=== PATIENT | female | born 1985 | race Caucasian/White ===

== ENCOUNTER 2018-06-20 17:41 | Emergency (ER) | payer OTHER ==
--- OUTSIDE RECORDS SUMMARY | 2018-06-20 18:26 | XMS REPORT ---
:1985 External Reference #:[id number] Author Organization [facility] Address [address] [place] [address] Phone [phone] Care Team Providers Name Role Phone HCP given Primary Care Physician Unavailable Payers Type Date Identification Numbers Payment Provider Subscriber Commercial Policy Number: [id number] [facility] [employer] Number: [id number] [address] [address] PayID: [id number] [place] [address] Problems Date Description Provider Status Onset: 05/14/2017 Opioid dependence Melvin Yi M.D. Active Onset: 05/14/2017 Tobacco user Melvin Yi M.D. Active Onset: 05/14/2017 Low back pain Melvin Yi M.D. Active Family History Date Family Member(s) Problem(s) Comments Mother Anemia Onset: Children None (05/11/2016) Siblings 1 brother (A&W) Paternal Grandmother due to Breast () - in her Cancer late 50s Social History Type Date Description Comments Education Highest Level Completed College Marital Status Single Occupation 05/11/2016 [employer] works for [employer] ([employer]) Cigarette Use 05/14/2017 current cigarette smoker 1ppd at peak; as of 05/11/16 is cutting down, now ~1/2ppd or less, and is planning to quit. 05/14/17: pt again noted smoking 1/2ppd and in midst of quitting ETOH Use 05/11/2016 Rarely consumes alcohol Exercise Type/Frequency 05/11/2016 Exercises regularly Age 1st [place] 16 Years Old # Partners in a Lifetime 05/11/2016 Partners 5-10 STD's 05/11/2016 No STD History Allergies, Adverse Reactions, Alerts Date Description Reaction Status Severity Comments 05/11/2016 Sulfa active swelling, hives Medications Medication Date Status Form Strength Qnty SIG Indications Ordering Provider Apri 03/24/ Active Tablets 0.15-30mg 84tab 1 by mouth Z30.09 Silcoff, 2017 -mcg s every day; for Melvin contraception M.DAnjana Buprenorphine 04/27/ Active Tablets 8-2mg 45tab 1 in the M54.5 Silcoff, HCL-Naloxone 2015 Sub s morning, 10/22 SOL Charles in afternoon; Sherley for chronic pain and opioid dependence; prescriber# [id number]; rx due 06/01/18 G89.4 F11.20 Ibuprofen 04/27/2016 Active Tablets 200mg as directed as Unknown needed Omeprazole 11/13/2017 - Hx Capsules DR 40mg 30c 1 by mouth every K30 Silcoff, 01/27/2018 aps day Sherley Charles Apri 05/14/2017 - Hx Tablets 0.15-30mg 84t 1 by mouth every Z30 Silcoff , 08/02/2017 -mcg abs day; for .09 Melvin contraception Peter.Kimberly. Famotidine 04/16/2017 - Hx Tablets 20mg 30t take one tablet R14 Silcoff , 05/14/2017 abs by mouth 10 .2 Melvin, minutes before Sherley supper; stop after 1 month if doing well R10.30 K30 Omeprazole 03/05/2017 - Hx Capsules DR 20mg 30caps 1 by mouth R14.2 Silcoff, 04/16/2017 every day Sherley Charles for acid reflux R10.30 K30 Omeprazole 12/21/2016 - Hx Capsules DR 40mg 30caps 1 by mouth every R14.2 Silcoff, 03/05/2017 day for acid Melvin reflux/belly M.D. pain R10.30 K30 Omeprazole 11/21/2016 - Hx Capsules DR 40mg 30caps 1 by mouth R14.2 Silcoff, 12/21/2016 every day; Sherley Charles stop after 2 wks if not effective; for morning belly symptoms R10.30 K30 Amoxicillin/Clavulanate 07/30/2016 Hx Tablets 875-125mg 20tabs 1 by mouth J01.90 Unknown Potassium - twice a 08/09/2016 day for sinus infection Methylprednisolone 07/30/2016 Hx Tablets 4mg 6 tabs on J01.90 Unknown - day 1; 08/05/2016 then 5 tabs day2; then 4 tabs day3; then 3 tabs day4; then 2 tabs day 5; then 1 tab day 6 Cephalexin 07/04/2016 Hx Capsules 500mg 21caps Take One Unknown - Capsule By 07/11/2016 Mouth Three Times A Day Until Gone Vitamin B12 05/10/2016 Hx Tablets 1000mcg take 1 D64.9 Unknown - ER tablet 06/08/2016 daily Vitamin D 04/27/2016 Hx Tablets 1000Unit 1 by mouth D64.9 Unknown - every day 12/20/2016 Multivitamin Adult Hx Tablets 1 by mouth Unknown - every day 09/25/2016 Vitamin C Hx Chewtabs 500mg 1 daily Unknown - 09/25/2016 Immunizations CPT Code Status Date Vaccine Lot # [id number] Given 06/11/2017 Influenza Virus Vaccine, Quadrivalent, Split, [id number] Preservative Free [id number] Given 07/07/2016 Influenza Virus Vaccine, Quadrivalent, Split, [id number] Preservative Free Vital Signs Date Vital Result Comment 05/28/2018 BP Systolic 106 mmHg BP Diastolic 70 mmHg Weight 159.00 lb 04/29/2018 BP Systolic 119 mmHg BP Diastolic 60 mmHg Weight 158.00 lb 03/25/2018 BP Systolic 106 mmHg BP Diastolic 70 mmHg Height 64.5 inches 5'4.50" Weight 162.00 lb BMI (Body Mass Index) 27.4 kg/m2 02/25/2018 BP Systolic 108 mmHg BP Diastolic 60 mmHg Weight 162.00 lb 01/28/2018 BP Systolic 110 mmHg BP Diastolic 68 mmHg Weight 164.00 lb 12/24/2017 BP Systolic 124 mmHg BP Diastolic 82 mmHg 11/13/2017 BP Systolic 110 mmHg BP Diastolic 70 mmHg Weight 164.00 lb 10/08/2017 BP Systolic 108 mmHg BP Diastolic 70 mmHg Weight 164.00 lb 09/03/2017 BP Systolic 110 mmHg BP Diastolic 66 mmHg Height 64 inches 5'4" Weight 162.00 lb BMI (Body Mass Index) 27.8 kg/m2 08/06/2017 BP Systolic 126 mmHg BP Diastolic 70 mmHg 07/09/2017 BP Systolic 102 mmHg BP Diastolic 58 mmHg Weight 157.00 lb 06/11/2017 BP Systolic 118 mmHg BP Diastolic 64 mmHg Weight 158.00 lb w/shoes 05/14/2017 BP Systolic 108 mmHg BP Diastolic 70 mmHg Weight 160.00 lb 04/16/2017 BP Systolic 124 mmHg BP Diastolic 70 mmHg Weight 163.00 lb 03/05/2017 BP Systolic 102 mmHg BP Diastolic 62 mmHg Weight 165.00 lb 01/22/2017 BP Systolic 100 mmHg BP Diastolic 60 mmHg Height 64 inches 5'4" Weight 158.00 lb BMI (Body Mass Index) 27.1 kg/m2 12/21/2016 BP Systolic 118 mmHg BP Diastolic 72 mmHg Weight 157.00 lb with shoes 11/21/2016 BP Systolic 112 mmHg BP Diastolic 58 mmHg Weight 144.00 lb 10/24/2016 BP Systolic 122 mmHg BP Diastolic 64 mmHg 09/26/2016 BP Systolic 114 mmHg BP Diastolic 74 mmHg Weight 165.00 lb w/shoes 08/29/2016 BP Systolic 116 mmHg BP Diastolic 70 mmHg Weight 170.00 lb 08/03/2016 BP Systolic 118 mmHg BP Diastolic 78 mmHg Weight 164.00 lb 07/07/2016 BP Systolic 108 mmHg BP Diastolic 72 mmHg Weight 166.00 lb w/shoes 06/08/2016 BP Systolic 106 mmHg BP Diastolic 70 mmHg Weight 169.00 lb w/shoes 05/11/2016 BP Systolic 126 mmHg BP Diastolic 80 mmHg Heart Rate 80 /min reg Respiratory Rate 12 /min not laboured Height 64 inches 5'4" Weight 170.00 lb BMI (Body Mass Index) 29.2 kg/m2 Results Test Date Test Result H/L Range Note Comprehensive Metabolic Panel 03/16/2018 Glucose 108 mg/dL High 74-106 1 BUN 9 mg/dL 7-18 1 Creatinine 0.7 mg/dL 0.6-1.3 1 Glom Filtration Rate, Estimate >60 mL/min >60 1 If >60 mL/min >60 1, 2 BUN/Creat 12.8 ratio 1 Sodium 141 mmol/L 136-145 1 Potassium 3.5 mmol/L 3.5-5.1 1 Chloride 108 mmol/L High 98-107 1 Carbon Dioxide 26 mmol/L 21-32 1 Anion Gap 7 mEq/L Low 8-16 1 Calcium 9.4 mg/dL 8.5-10.1 1 Total Protein 7.9 g/dL 6.4-8.2 1 Albumin 4.2 g/dL 3.4-5.0 1 Globulin 3.7 g/dL 1.9-4.3 1 Alb/Glob 1.1 ratio 1 Bilirubin,Total 0.9 mg/dL 0.2-1.0 1 Sgot/Ast 18 U/L 15-37 1 SGPT/Alt 19 U/L 12-78 1 Alkaline Phosphatase 58 U/L 45-117 1 Type And Screen 03/16/2018 Patient Blood Type A POS 1 Antibody Screen Negative Negative 1 Laboratory test finding 03/16/2018 HCG, Quant 5031.0 mIU/mL 1, 3 Urine Drug Screen Inhouse 07/09/2017 Ua Cocaine - Ua Opiates - Ua Amphetamines - Urine Methanphetamines - Urine Benzodiazepines QN [place] - Urine Oxycodone QL - CBC 10/02/2016 White Blood Count 5.8 K/uL 3.1-10.7 4 Red Blood Count 4.22 M/uL 3.90-5.40 4 Hemoglobin 12.2 gm/dL 11.6-15.8 4 Hematocrit 36.3 % 36.0-46.1 4 Mean Cell Volume 86.0 fl 80.9-99.0 4 Mean Corpuscular HGB 28.9 pg 25.9-32.7 4 Mean Corpuscular HGB Conc 33.6 g/dL 30.8-34.3 4 Platelet Count 282 K/uL 155-360 4 Red Cell Distri Width %CV 13.1 % 11.7-14.4 4 Mean Platelet Volume 10.3 fL 8.9-12.4 4 Basic Metabolic Panel 10/02/2016 Glucose 113 mg/dL High 74-106 4 BUN 2 mg/dL Low 7-18 4 Creatinine 0.6 mg/dL 0.6-1.3 4 Glom Filtration Rate, Estimate >60 mL/min >60 4 If >60 mL/min >60 4, 5 BUN/Creat 3.3 ratio 4 Sodium 143 mmol/L 136-145 4 Potassium 3.1 mmol/L Low 3.5-5.1 4 Chloride 107 mmol/L 98-107 4 Carbon Dioxide 28 mmol/L 21-32 4 Anion Gap 8 mEq/L 8-16 4 Calcium 8.6 mg/dL 8.5-10.1 4 CBC 10/01/2016 White Blood Count 6.1 K/uL 3.1-10.7 6 Red Blood Count 4.31 M/uL 3.90-5.40 6 Hemoglobin 12.5 gm/dL 11.6-15.8 6 Hematocrit 37.1 % 36.0-46.1 6 Mean Cell Volume 86.1 fl 80.9-99.0 6 Mean Corpuscular HGB 29.0 pg 25.9-32.7 6 Mean Corpuscular HGB Conc 33.7 g/dL 30.8-34.3 6 Platelet Count 288 K/uL 155-360 6 Red Cell Distri Width %CV 13.1 % 11.7-14.4 6 Mean Platelet Volume 10.0 fL 8.9-12.4 6 Basic Metabolic Panel 10/01/2016 Glucose 110 mg/dL High 74-106 6 BUN 4 mg/dL Low 7-18 6 Creatinine 0.6 mg/dL 0.6-1.3 6 Glom Filtration Rate, Estimate >60 mL/min >60 6 If >60 mL/min >60 6, 7 BUN/Creat 6.6 ratio 6 Sodium 143 mmol/L 136-145 6 Potassium 3.6 mmol/L 3.5-5.1 6 Chloride 109 mmol/L High 98-107 6 Carbon Dioxide 25 mmol/L 21-32 6 Anion Gap 9 mEq/L 8-16 6 Calcium 8.7 mg/dL 8.5-10.1 6 Blood Culture 09/30/2016 Blood Culture Aerobic NO GROWTH: FINAL <SEE NOTE> 8, 9 Blood Culture Anaerobic NO GROWTH: FINAL <SEE NOTE> 8, 10 Blood Culture 09/30/2016 Blood Culture Aerobic NO GROWTH: FINAL <SEE NOTE> 8, 11 Blood Culture Anaerobic NO GROWTH: FINAL <SEE NOTE> 8, 12 CBS W/Automated Diff 09/30/2016 White Blood Count 9.0 K/uL 3.1-10.7 13 Red Blood Count 5.04 M/uL 3.90-5.40 13 Hemoglobin 14.5 gm/dL 11.6-15.8 13 Hematocrit 42.9 % 36.0-46.1 13 Mean Cell Volume 85.1 fl 80.9-99.0 13 Mean Corpuscular HGB 28.8 pg 25.9-32.7 13 Mean Corpuscular HGB Conc 33.8 g/dL 30.8-34.3 13 Platelet Count 319 K/uL 155-360 13 Red Cell Distri Width SD 39.9 fl 3-47 13 Red Cell Distri Width %CV 13.1 % 11.7-14.4 13 Mean Platelet Volume 9.9 fL 8.9-12.4 13 Neut% 70.3 % 40.4-72.8 13 Lymph % 22.7 % 17.0-46.1 13 [place] % 5.1 % 4.3-13.2 13 Eo% 1.3 % 0.0-6.6 13 Bas% 0.6 % 0.0-1.1 13 Neut# 6.33 K/uL 1.8-7.0 13 Lymph # 2.04 K/uL 1.8-7.0 13 [place] # 0.46 K/uL 0.3-0.9 13 Eos # 0.12 K/uL 0.0-0.5 13 Baso # 0.05 K/uL 0.0-0.1 13 Urinalysis With Microscopic 09/30/2016 Urine Color YELLOW Yellow 13 Urine Clarity CLEAR Clear 13 Urine Glucose - Dipstick NEGATIVE mg/dL Negative 13 Urine Bilirubin - Dipstick SMALL Negative 13 Urine Ketone >=80 mg/dL High Negative 13 Urine Specific [place] >=1.030 1.010-1.030 13 Urine Blood SMALL Negative 13 Urine PH 6.0 Low 6.5-7.5 13 Urine Protein - Dipstick NEGATIVE mg/dL Negative 13 Urine Urobilinogen - Dipstick 0.2 E.U./dL 0.2-1.0 13 Urine Nitrite - Dipstick NEGATIVE Negative 13 Urine Leuk Esterase NEGATIVE Negative 13 Urine RBC 0-2 rbc/hpf 0-2 13 Urine WBC 2-5 wbc/hpf 0-7 13 Urine Epithelial Cells MANY /lpf None Seen 13, 14 Urine Bacteria MODERATE None Seen 13 Source: URINE, CLEAN CAT <SEE NOTE> 13, 15 Comprehensive Metabolic Panel 09/30/2016 Glucose 78 mg/dL 74-106 13 BUN 10 mg/dL 7-18 13 Creatinine 0.7 mg/dL 0.6-1.3 13 Glom Filtration Rate, Estimate >60 mL/min >60 13 If >60 mL/min >60 13, 16 BUN/Creat 14.2 ratio 13 Sodium 140 mmol/L 136-145 13 Potassium 3.5 mmol/L 3.5-5.1 13 Chloride 105 mmol/L 98-107 13 Carbon Dioxide 23 mmol/L 21-32 13 Anion Gap 12 mEq/L 8-16 13 Calcium 9.0 mg/dL 8.5-10.1 13 Total Protein 7.5 g/dL 6.4-8.2 13 Albumin 4.0 g/dL 3.4-5.0 13 Globulin 3.5 g/dL 1.9-4.3 13 Alb/Glob 1.1 ratio 13 Bilirubin,Total 0.8 mg/dL 0.2-1.0 13 Sgot/Ast 21 U/L 15-37 13 SGPT/Alt 24 U/L 12-78 13 Alkaline Phosphatase 76 U/L 45-117 13 Drugs Of Abuse-Urine Screen 7 09/30/2016 Amphetamines (Urine) Negative 13 Barbiturates (Urine) POSITIVE 13 Benzodiazepines (Urine) Negative 13 Cannabinoids (Urine) Negative 13 Cocaine Metabolite (Urine) Negative 13 Methadone (Urine) Negative 13 Opiates (Urine) Negative 13 Urine Cutoffs * 13, 17 Laboratory test 09/30/2016 Carbamazepine 1.8 ug/mL Low 4.0-12.0 13 finding Urine Culture 09/30/2016 Urine Culture NO GROWTH: 13, 18 FINAL <SEE NOTE> Laboratory test 09/30/2016 C. Difficile Toxin NEGATIVE FOR C. 19, 20 finding A/B <SEE NOTE> Laboratory test 09/29/2016 Lipase 106 U/L 73-393 21 finding HCG,Serum (Qualitative) NEGATIVE (Negative) 21, 22 CBS W/Automated Diff 09/29/2016 White Blood Count 8.1 K/uL 3.1-10.7 21 Red Blood Count 4.68 M/uL 3.90-5.40 21 Hemoglobin 13.4 gm/dL 11.6-15.8 21 Hematocrit 40.3 % 36.0-46.1 21 Mean Cell Volume 86.1 fl 80.9-99.0 21 Mean Corpuscular HGB 28.6 pg 25.9-32.7 21 Mean Corpuscular HGB Conc 33.3 g/dL 30.8-34.3 21 Platelet Count 284 K/uL 155-360 21 Red Cell Distri Width SD 40.2 fl 3-47 21 Red Cell Distri Width %CV 13.0 % 11.7-14.4 21 Mean Platelet Volume 10.2 fL 8.9-12.4 21 Neut% 67.8 % 40.4-72.8 21 Lymph % 24.5 % 17.0-46.1 21 [place] % 6.2 % 4.3-13.2 21 Eo% 1.0 % 0.0-6.6 21 Bas% 0.5 % 0.0-1.1 21 Neut# 5.47 K/uL 1.8-7.0 21 Lymph # 1.98 K/uL 1.8-7.0 21 [place] # 0.50 K/uL 0.3-0.9 21 Eos # 0.08 K/uL 0.0-0.5 21 Baso # 0.04 K/uL 0.0-0.1 21 Comprehensive Metabolic Panel 09/29/2016 Glucose 75 mg/dL 74-106 21 BUN 9 mg/dL 7-18 21 Creatinine 0.6 mg/dL 0.6-1.3 21 Glom Filtration Rate, Estimate >60 mL/min >60 21 If >60 mL/min >60 21, 23 BUN/Creat 15.0 ratio 21 Sodium 143 mmol/L 136-145 21 Potassium 3.4 mmol/L Low 3.5-5.1 21 Chloride 107 mmol/L 98-107 21 Carbon Dioxide 23 mmol/L 21-32 21 Anion Gap 13 mEq/L 8-16 21 Calcium 8.7 mg/dL 8.5-10.1 21 Total Protein 7.2 g/dL 6.4-8.2 21 Albumin 3.8 g/dL 3.4-5.0 21 Globulin 3.4 g/dL 1.9-4.3 21 Alb/Glob 1.1 ratio 21 Bilirubin,Total 0.8 mg/dL 0.2-1.0 21 Sgot/Ast 17 U/L 15-37 21 SGPT/Alt 23 U/L 12-78 21 Alkaline Phosphatase 73 U/L 45-117 21 CBS W/Automated Diff 09/28/2016 White Blood Count 6.1 K/uL 3.1-10.7 24 Red Blood Count 4.80 M/uL 3.90-5.40 24 Hemoglobin 13.6 gm/dL 11.6-15.8 24 Hematocrit 41.1 % 36.0-46.1 24 Mean Cell Volume 85.6 fl 80.9-99.0 24 Mean Corpuscular HGB 28.3 pg 25.9-32.7 24 Mean Corpuscular HGB Conc 33.1 g/dL 30.8-34.3 24 Platelet Count 304 K/uL 155-360 24 Red Cell Distri Width SD 40.3 fl 3-47 24 Red Cell Distri Width %CV 13.1 % 11.7-14.4 24 Mean Platelet Volume 9.6 fL 8.9-12.4 24 Neut% 57.2 % 40.4-72.8 24 Lymph % 34.1 % 17.0-46.1 24 [place] % 6.4 % 4.3-13.2 24 Eo% 1.3 % 0.0-6.6 24 Bas% 1.0 % 0.0-1.1 24 Neut# 3.47 K/uL 1.8-7.0 24 Lymph # 2.07 K/uL 1.8-7.0 24 [place] # 0.39 K/uL 0.3-0.9 24 Eos # 0.08 K/uL 0.0-0.5 24 Baso # 0.06 K/uL 0.0-0.1 24 Comprehensive Metabolic Panel 09/28/2016 Glucose 97 mg/dL 74-106 24 BUN 13 mg/dL 7-18 24 Creatinine 0.8 mg/dL 0.6-1.3 24 Glom Filtration Rate, Estimate >60 mL/min >60 24 If >60 mL/min >60 24, 25 BUN/Creat 16.2 ratio 24 Sodium 142 mmol/L 136-145 24 Potassium 3.3 mmol/L Low 3.5-5.1 24 Chloride 106 mmol/L 98-107 24 Carbon Dioxide 25 mmol/L 21-32 24 Anion Gap 11 mEq/L 8-16 24 Calcium 9.1 mg/dL 8.5-10.1 24 Total Protein 8.0 g/dL 6.4-8.2 24 Albumin 4.2 g/dL 3.4-5.0 24 Globulin 3.8 g/dL 1.9-4.3 24 Alb/Glob 1.1 ratio 24 Bilirubin,Total 1.0 mg/dL 0.2-1.0 24 Sgot/Ast 19 U/L 15-37 24 SGPT/Alt 24 U/L 12-78 24 Alkaline Phosphatase 81 U/L 45-117 24 Laboratory test finding 09/28/2016 Lipase 144 U/L 73-393 24 HCG,Serum (Qualitative) NEGATIVE (Negative) 24 Urine Drug Screen Inhouse 08/03/2016 Ua Cocaine - Ua Opiates - Ua Amphetamines - Urine Methanphetamines - Urine Benzodiazepines QN Olalla - Urine Oxycodone QL - Urine Drug Screen Inhouse 06/08/2016 Ua Cocaine - Ua Opiates - Ua Amphetamines - Urine Methanphetamines - Urine Benzodiazepines QN Olalla - Urine Oxycodone QL - Iron-Tibc-%Sat 05/30/2016 Serum Iron 84 g/dL 50-170 Total Iron Binding Capacity 360 g/dL 250-450 Transferrin %Saturation 23 % 12-57 Laboratory test finding 05/30/2016 Vitamin B12 446 pg/mL 193-986 26 Folic Acid 6.3 ng/mL 3.1-17.5 27 Ferritin 34 ng/mL 8-252 CBC W/Automated Diff 05/30/2016 White Blood Count 6.8 K/uL 3.1-10.7 Red Blood Count 4.63 M/uL 3.90-5.40 Hemoglobin 13.5 gm/dL 11.6-15.8 Hematocrit 40.4 % 36.0-46.1 Mean Cell Volume 87.3 fl 80.9-99.0 Mean Corpuscular HGB 29.2 pg 25.9-32.7 Mean Corpuscular HGB Conc 33.4 g/dL 30.8-34.3 Platelet Count 324 K/uL 155-360 Red Cell Distri Width SD 40.9 fl 3-47 Red Cell Distri Width %CV 13.2 % 11.7-14.4 Mean Platelet Volume 10.4 fL 8.9-12.4 Neut% 50.5 % 40.4-72.8 Lymph % 39.3 % 17.0-46.1 [place] % 5.4 % 4.3-13.2 Eo% 4.4 % 0.0-6.6 Bas% 0.4 % 0.0-1.1 Neut# 3.42 K/uL 1.8-7.0 Lymph # 2.67 K/uL 1.8-7.0 [place] # 0.37 K/uL 0.3-0.9 Eos # 0.30 K/uL 0.0-0.5 Baso # 0.03 K/uL 0.0-0.1 Urine Drug Screen Inhouse 05/11/2016 Ua Cocaine - Ua Opiates - Ua Amphetamines - Urine Methanphetamines - Urine Benzodiazepines QN [place] - Urine Oxycodone QL - 1 SEVERE LOWER ABD PAIN, BLEEDING 2 Note: Persistent reduction for 3 months or more in an eGFR <60 mL/min/1.73 m2 defines CKD. Patients with eGFR values >/=60 mL/min/1.73 m2 may also have CKD if evidence of persistent proteinuria is present. The original MDRD equation for estimated GFR is not valid for patients less than 18 years of age. Additional information may be found at [email or web address]. 3 Approximate Gestational Age and Total BHCG Range: 0.2 - 1 Week........................5-50 mIU/mL 1 - 2 Weeks.....................50-500 mIU/mL 2 - 3 Weeks..................100-5,000 mIU/mL 3 - 4 Weeks.................500-10,000 mIU/mL 4 - 5 Weeks...............1,000-50,000 mIU/mL 5 - 6 Weeks.............10,000-100,000 mIU/mL 6 - 8 Weeks.............15,000-200,000 mIU/mL 2 - 3 Months............10,000-100,000 mIU/mL 4 ABD PAIN, FAILED OUTPT THERAPY 5 Note: Persistent reduction for 3 months or more in an eGFR <60 mL/min/1.73 m2 defines CKD. Patients with eGFR values >/=60 mL/min/1.73 m2 may also have CKD if evidence of persistent proteinuria is present. The original MDRD equation for estimated GFR is not valid for patients less than 18 years of age. Additional information may be found at [email or web address]. 6 ABD PAIN FAILED OUTPT THERAPY 7 Note: Persistent reduction for 3 months or more in an eGFR <60 mL/min/1.73 m2 defines CKD. Patients with eGFR values >/=60 mL/min/1.73 m2 may also have CKD if evidence of persistent proteinuria is present. The original MDRD equation for estimated GFR is not valid for patients less than 18 years of age. Additional information may be found at [email or web address]. 8 ABD PAIN, FAILED OUTPT THERAPY 9 NO GROWTH: FINAL REPORT 10 NO GROWTH: FINAL REPORT 11 NO GROWTH: FINAL REPORT 12 NO GROWTH: FINAL REPORT 13 ABD PAIN FAILED OUTPT THERAPY 14 POSSIBLE UROGENITAL CONTAMINATION. 15 URINE, CLEAN CATCH 16 Note: Persistent reduction for 3 months or more in an eGFR <60 mL/min/1.73 m2 defines CKD. Patients with eGFR values >/=60 mL/min/1.73 m2 may also have CKD if evidence of persistent proteinuria is present. The original MDRD equation for estimated GFR is not valid for patients less than 18 years of age. Additional information may be found at [email or web address]. 17 URINE SPECIMENS ARE SCREENED AT THE LISTED CUTOFFS DRUG CLASS INITIAL TEST LEVEL Amphetamines 1000 ng/mL Barbiturates 200 ng/mL Benzodiazepines 200 ng/mL Cannabinoids 50 ng/mL Cocaine Metabolite 300 ng/mL Methadone 300 ng/mL Opiates 300 ng/mL Any PRESUMPTIVE POSITIVE findings are UNCONFIRMED. Confirmatory testing is suggested if findings are unexpected. Please contact laboratory if confirmatory testing is desired. SPECIMENS ARE HELD FOR 72 HOURS. 18 NO GROWTH: FINAL REPORT 19 ABD PAIN, FAILED OUTPT THERAPY 20 NEGATIVE FOR C. DIFFICILE TOXIN A/B. CORRELATE RESULTS WITH CLINICAL CONDITION. 21 SEVERE CENTRAL ABD PAIN,SEEN EARLIER NOT BETTER 22 SERUM SPECIMEN 23 Note: Persistent reduction for 3 months or more in an eGFR <60 mL/min/1.73 m2 defines CKD. Patients with eGFR values >/=60 mL/min/1.73 m2 may also have CKD if evidence of persistent proteinuria is present. The original MDRD equation for estimated GFR is not valid for patients less than 18 years of age. Additional information may be found at [email or web address]. 24 STOMACH PAIN 25 Note: Persistent reduction for 3 months or more in an eGFR <60 mL/min/1.73 m2 defines CKD. Patients with eGFR values >/=60 mL/min/1.73 m2 may also have CKD if evidence of persistent proteinuria is present. The original MDRD equation for estimated GFR is not valid for patients less than 18 years of age. Additional information may be found at [email or web address]. 26 QUERY: Is Patient Fasting? Y 27 QUERY: Is Patient Fasting? Y Procedures Description No Information Encounters Type Date Location Provider CPT E/M Dx Office Visit 05/28/2018 11:45a Main Office Melvin Yi M.D. 12165 F11.20 G89.4 Office Visit 04/29/2018 9:45a Main Office Melvin Yi M.D. 14819 F11.20 G89.4 M54.5 Office Visit 03/25/2018 11:15a Main Office Melvin Yi M.D. 03241 F11.20 G89.4 M54.5 Z30.09 O02.1 Office Visit 02/25/2018 11:15a Main Office Melvin Yi M.D. 35332 F11.20 G89.4 M54.5 Office Visit 01/28/2018 11:15a Main Office Melvin Yi M.D. 01624 F11.20 G89.4 M54.5 K30 Office Visit 12/24/2017 2:30p Main Office Melvin Yi M.D. 40889 F11.20 G89.4 M54.5 K30 Office Visit 11/13/2017 11:45a Main Office Melvin Yi M.D. 14489 F11.20 G89.4 M54.5 K30 Office Visit 10/08/2017 9:30a Main Office Melvin Yi M.D. 78718 F11.20 G89.4 Office Visit 09/03/2017 4:00p Main Office Melvin Yi M.D. 37383 F11.20 M54.5 G89.4 Office Visit 08/06/2017 9:30a Main Office Melvin Yi M.D. 74408 F11.20 M54.5 G89.4 Office Visit 07/09/2017 2:45p Main Office Melvin Yi M.D. 27371 F11.20 M54.5 G89.4 Office Visit 06/11/2017 11:15a Main Office Melvin Yi M.D. 18641 F11.20 M54.5 G89.4 K30 F17.210 Z23 Z41.8 Office Visit 05/14/2017 9:30a Main Office Melvin Yi M.D. 25870 F11.20 M54.5 G89.4 K30 Z30.09 F17.210 Office Visit 04/16/2017 9:45a Main Office Melvin Yi M.D. 15735 F11.20 M54.5 G89.4 K30 Office Visit 03/05/2017 9:45a Main Office Melvin Yi M.D. 92815 F11.20 M54.5 K30 Office Visit 01/22/2017 10:15a Main Office Melvin Yi M.D. 54860 F11.20 M54.5 G89.4 R10.30 K30 Office Visit 12/21/2016 2:00p Main Office Melvin Yi M.D. 82805 F11.20 M54.5 G89.4 R10.30 K30 Office Visit 11/21/2016 11:30a Main Office Melvin Yi M.D. 86244 F11.20 M54.5 G89.4 R10.30 R14.3 R14.2 Office Visit 10/24/2016 1:15p Main Office Melvin Yi M.D. 46007 F11.20 M54.5 G89.4 G50.1 R19.7 Office Visit 09/26/2016 9:45a Main Office Melvin Yi M.D. 54818 F11.20 M54.5 G89.4 H92.01 Office Visit 08/29/2016 11:15a Main Office Melvin Yi M.D. 41253 F11.20 M54.5 G89.4 H92.01 Office Visit 08/03/2016 11:15a Main Office Melvin Yi M.D. 34299 F11.20 M54.5 G89.4 J01.90 Office Visit 07/07/2016 9:45a Main Office Melvin Yi M.D. 64475 F11.20 M54.5 G89.4 K08.9 Z23 Z41.8 Office Visit 06/08/2016 10:45a Main Office Melvin Yi M.D. 27391 F11.20 Office Visit 05/11/2016 2:00p Main Office Melvin Yi M.D. 36305 F11.20 M54.5 G89.4 D64.9 F17.210 Plan of Care Future Appointment(s):06/25/2018 11:30 am - Melvin Yi M.D. at [facility]/28/2018 - Mlevin Yi M.D.F11.20 Opioid dependence, uncomplicatedFollow up:RTO 1 diiadA43.4 Chronic pain syndrome
[2018-06-20 18:30] VITALS: BP 132/78
--- NOTE | 2018-06-20 18:43 | ED ---
Throat Pain/Nasal Congestion - HPI Summary HPI Summary: 33 yr old female with the complaint of sinus pressure,post nasal drip, right ear pain. Onset of symptoms couple days ago. No fever or chills. No cough. She has prior sinus issues in the past. - History of Current Complaint Chief Complaint: UCGeneralIllness Time Seen by Provider: 06/20/18 18:35 - Allergies/Home Medications Allergies/Adverse Reactions: Allergies Allergy/AdvReac Type Severity Reaction Status Date / Time MS Sulfa Antibiotics Allergy Unknown See Comment Verified 08/08/16 20:13 [Sulfa Antibiotics] Home Medications: Home Medications Desogestrel-Ethinyl Estradiol [Apreber 28 Day Tablet] 1 each PO DAILY 06/20/18 [ History Confirmed 06/20/18] Folic Acid TAB* [Folvite TAB*] 1 mg PO DAILY 06/20/18 [History Confirmed ] PMH/Surg Hx/FS Hx/Imm Hx Endocrine/Hematology History: Denies: Hx Diabetes, Hx Thyroid Disease Cardiovascular History: Denies: Hx Hypertension Respiratory History: Denies: Hx Asthma, Hx Chronic Obstructive Pulmonary Disease (COPD) GI History: Denies: Hx Ulcer - Surgical History Surgery Procedure, Year, and Place: tonsillectomy Infectious Disease History: No Infectious Disease History: Denies: Hx Clostridium Difficile, Hx Hepatitis, Hx Human Immunodeficiency Virus (HIV), Hx of Known/Suspected MRSA, Hx Shingles, Hx Tuberculosis, Hx Known/ Suspected VRE, Hx Known/Suspected VRSA, History Other Infectious Disease, Traveled Outside the [place] in Last 30 Days - Family History Known Family History: Negative: Cardiac Disease, Hypertension, Diabetes - Social History Alcohol Use: None Substance Use Type: Reports: None Smoking Status (MU): Heavy Every Day Tobacco Smoker Type: eCigdemetri Amount Used/How Often: 1/2 PPD Length of Time of Smoking/Using Tobacco: started age 20 Have You Smoked in the Last Year: Yes Review of Systems Constitutional: Negative Positive: Ear Ache, Other - sinus pressure Negative: Cough All Other Systems Reviewed And Are Negative: Yes Physical Exam Triage Information Reviewed: Yes Vital Signs On Initial Exam: Initial Vitals Temp Pulse Resp BP Pulse Ox 98.1 F 83 16 132/78 99 06/20/18 18:26 06/20/18 18:26 06/20/18 18:26 06/20/18 18:26 06/20/18 18:26 Vital Signs Reviewed: Yes Appearance: Positive: Well-Appearing, No Pain Distress Skin: Positive: Warm, Skin Color Reflects Adequate Perfusion Head/Face: Positive: Normal Head/Face Inspection Eyes: Positive: EOMI ENT: Positive: Normal ENT inspection, Pharynx normal, Nasal congestion, TMs normal, Sinus tenderness Neck: Positive: Supple, Nontender Respiratory/Lung Sounds: Positive: Clear to Auscultation, Breath Sounds Present Cardiovascular: Positive: RRR. Negative: Murmur Abdomen Description: Positive: Nontender Musculoskeletal: Positive: Strength/ROM Intact Neurological: Positive: Sensory/Motor Intact, Alert, Oriented to Person Place, Time, CN Intact II-III Psychiatric: Positive: Normal - [place] Coma Scale Best Eye Response: 4 - Spontaneous Best Motor Response: 6 - Obeys Commands Best Verbal Response: 5 - Oriented Coma Scale Total: 15 Diagnostics - Vital Signs Vital Signs Temp Pulse Resp BP Pulse Ox 06/20/18 18:26 98.1 F 83 16 132/78 99 - Laboratory Lab Statement: Any lab studies that have been ordered have been reviewed, and results considered in the medical decision making process. EENT Course/Dx - Course Course Of Treatment: 33 yr old female with sinusitis. Rx cefdinir - Diagnoses Provider Diagnoses: Sinusitis Discharge - Sign-Out/Discharge Documenting (check all that apply): Patient Departure All imaging exams completed and their final reports reviewed: No Studies - Discharge Plan Condition: Good Disposition: HOME Prescriptions: Cefdinir [Cefdinir 300 MG CAP] 300 mg PO BID #20 capsule Patient Education Materials: Sinusitis (ED) Referrals: Melvin Yi MD [Primary Care Provider] - 4 Days - Billing Disposition and Condition Condition: GOOD Disposition: Home
== END 2018-06-20 18:43 | disposition home or self-care (01) ==
LOC: UCCORT 17:41
DX: J32.9 Chronic sinusitis, unspecified (principal); F17.210 Nicotine dependence, cigarettes, uncomplicated; Z88.2 Allergy status to sulfonamides
CPT/HCPCS: 99212; G0463

== ENCOUNTER 2018-10-18 12:08 | Emergency (ER) | payer OTHER ==
--- OUTSIDE RECORDS SUMMARY | 2018-10-18 14:02 | XMS REPORT | Continuity of Care Document ---
:1985 External Reference #:[id number] Author Name Melvin Yi M.D. Address [address] [facility] [address] [place] [address] Care Team Providers Name Role Phone HCP given Primary Care Physician Unavailable Payers Type Date Identification Numbers Payment Provider Subscriber Policy Number: [id number] [facility] [employer] Number: [id number] [address] [address] PayID: [id number] [place] [address] Advance Directives Description No Information Available Problems Date Description Provider Status Onset: 05/14/2017 [...] 50s Social History Type Date Description Comments Sex Unknown Education Highest Level Completed College Marital Status Single Occupation 05/11/2016 [employer] 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 05/14/17: pt again noted smoking 1/2ppd and in midst of quitting Smoking Status Reviewed: current cigarette smoker 1ppd at peak; as of 05/14/17 05/11/16 is cutting down, now ~1/2ppd or less, and is planning to quit. 05/14/17: pt again noted smoking 1/2ppd and in midst of quitting ETOH Use 05/11/2016 Rarely consumes alcohol Exercise Type/Frequency 05/11/2016 Exercises regularly Age 1st [place] 16 Years Old # Partners in a Lifetime 05/11/2016 Partners 5-10 STD's 05/11/2016 No STD History Allergies, Adverse Reactions, Alerts Date Description Reaction Status Severity Comments 05/11/2016 Sulfa Active swelling, hives Medications Medication Date Status Form Strength Qnty SIG Indications Ordering Provider Omeprazole 08/27 Active Capsules 40mg 30cap 1 by mouth K30 [address] s every day as Melvin, needed for M.D. dyspepsia; stop periodically and resume when/if symtoms return Apri 03/24 Active Tablets 0.15-30mg 84tab 1 by mouth Z30.09 Silco -mcg s every day; for Melvin contraception M.D. Buprenorphine 04/27 Active Tablets 8-2mg 45tab 1 in the M54.5 Silcoff, HCL-Naloxone Sub s morning, 10/22 SOL Charles in afternoon; M.D. for chronic pain and opioid dependence; prescriber# [id number]; rx due 09/29/18 G89.4 F11.20 Ibuprofen 04/27/2016 Active Tablets 200mg as directed as Unknown needed Cefdinir 06/20/2018 - Hx Capsules 300mg one cap po twice J01 Unknown 06/30/2018 daily x 10 days; .90 for sinusitis Omeprazole 11/13/2017 - Hx Capsules DR 40mg 30c 1 by mouth every K30 Silcoff, 01/27/2018 aps day Sherley Charles Apri 05/14/2017 - Hx Tablets 0.15-30mg 84t 1 by mouth every Z30 Silcoff , 08/02/2017 -mcg abs day; for .09 Melvin contraception M.D. Famotidine 04/16/2017 - Hx Tablets 20mg 30t take one tablet R14 Silcoff , 05/14/2017 abs by mouth 10 .2 Melvin, minutes before M.D. supper; stop after 1 month if doing well R10.30 K30 Omeprazole 03/05/2017 - Hx Capsules DR 20mg 30caps 1 by mouth R14.2 Silcoff, 04/16/2017 every day Sherley Charles for acid reflux R10.30 K30 Omeprazole 12/21/2016 - Hx Capsules DR 40mg 30caps 1 by mouth every R14.2 Silcoff, 03/05/2017 day for acid Melvin, reflux/belly M.D. pain R10.30 K30 Omeprazole 11/21/2016 [...] CPT Code Status Date Vaccine Lot # [id number] Given 06/25/2018 Influenza Virus Vaccine, Quadrivalent, Split, [id number] Preservative Free 27626 Given 06/11/2017 Influenza Virus Vaccine, Quadrivalent, Split, [id number] Preservative Free 32379 Given 07/07/2016 Influenza Virus Vaccine, Quadrivalent, Split, [id number] Preservative Free Vital Signs Date Vital Result Comment 09/24/2018 4:12pm BP Systolic 112 mmHg BP Diastolic 70 mmHg Height 65 inches 5'5" Weight 173.00 lb BMI (Body Mass Index) 28.8 kg/m2 08/27/2018 4:04pm BP Systolic 110 mmHg BP Diastolic 68 mmHg Weight 172.50 lb w/boots 07/23/2018 10:58am BP Systolic 100 mmHg BP Diastolic 70 mmHg Weight 170.00 lb with boots 06/25/2018 11:17am BP Systolic 110 mmHg BP Diastolic 62 mmHg Weight 162.00 lb with sandals 05/28/2018 12:16pm BP Systolic 106 mmHg BP Diastolic 70 mmHg Weight 159.00 lb 04/29/2018 10:07am BP Systolic 119 mmHg BP Diastolic 60 mmHg Weight 158.00 lb 03/25/2018 11:11am BP Systolic 106 mmHg BP Diastolic 70 mmHg Height 64.5 inches 5'4.50" Weight 162.00 lb BMI (Body Mass Index) 27.4 kg/m2 02/25/2018 11:06am BP Systolic 108 mmHg BP Diastolic 60 mmHg Weight 162.00 lb 01/28/2018 11:13am BP Systolic 110 mmHg BP Diastolic 68 mmHg Weight 164.00 lb 12/24/2017 2:40pm BP Systolic 124 mmHg BP Diastolic 82 mmHg 11/13/2017 12:09pm BP Systolic 110 mmHg BP Diastolic 70 mmHg Weight 164.00 lb 10/08/2017 9:48am BP Systolic 108 mmHg BP Diastolic 70 mmHg Weight 164.00 lb 09/03/2017 4:36pm BP Systolic 110 mmHg BP Diastolic 66 mmHg Height 64 inches 5'4" Weight 162.00 lb BMI (Body Mass Index) 27.8 kg/m2 08/06/2017 9:33am BP Systolic 126 mmHg BP Diastolic 70 mmHg 07/09/2017 3:09pm BP Systolic 102 mmHg BP Diastolic 58 mmHg Weight 157.00 lb 06/11/2017 11:11am BP Systolic 118 mmHg BP Diastolic 64 mmHg Weight 158.00 lb w/shoes 05/14/2017 9:22am BP Systolic 108 mmHg BP Diastolic 70 mmHg Weight 160.00 lb 04/16/2017 9:54am BP Systolic 124 mmHg BP Diastolic 70 mmHg Weight 163.00 lb 03/05/2017 10:09am BP Systolic 102 mmHg BP Diastolic 62 mmHg Weight 165.00 lb 01/22/2017 10:12am BP Systolic 100 mmHg BP Diastolic 60 mmHg Height 64 inches 5'4" Weight 158.00 lb BMI (Body Mass Index) 27.1 kg/m2 12/21/2016 2:19pm BP Systolic 118 mmHg BP Diastolic 72 mmHg Weight 157.00 lb with shoes 11/21/2016 12:20pm BP Systolic 112 mmHg BP Diastolic 58 mmHg Weight 144.00 lb 10/24/2016 1:05pm BP Systolic 122 mmHg BP Diastolic 64 mmHg 09/26/2016 9:58am BP Systolic 114 mmHg BP Diastolic 74 mmHg Weight 165.00 lb w/shoes 08/29/2016 10:59am BP Systolic 116 mmHg BP Diastolic 70 mmHg Weight 170.00 lb 08/03/2016 11:30am BP Systolic 118 mmHg BP Diastolic 78 mmHg Weight 164.00 lb 07/07/2016 9:47am BP Systolic 108 mmHg BP Diastolic 72 mmHg Weight 166.00 lb w/shoes 06/08/2016 10:59am BP Systolic 106 mmHg BP Diastolic 70 mmHg Weight 169.00 lb w/shoes 05/11/2016 2:05pm BP Systolic 126 mmHg BP Diastolic 80 mmHg Heart Rate 80 /min reg Respiratory Rate 12 /min not laboured Height 64 inches 5'4" Weight 170.00 lb BMI (Body Mass Index) 29.2 kg/m2 Results Test Date Facility Test Result H/L Range Note Urine Drug Screen Inhouse 06/25/2018 In House [facility] Cocaine - Ua Opiates - Ua Amphetamines - Urine Methanphetamines - Urine Benzodiazepines QN [place] - Urine Oxycodone QL - Laboratory test 03/16/2018 [facility]. HCG, Quant 5031.0 1 , 2 finding LABORATORY mIU/mL [phone] Comprehensive 03/16/2018 [facility]. Glucose 108 mg/dL High 74-10 Metabolic Panel LABORATORY 6 [phone] BUN 9 mg/dL N 7-18 Creatinine 0.7 mg/dL N 0.6-1.3 Glom Filtration Rate, Estimate >60 mL/min >60 If >60 mL/min >60 3 BUN/Creat 12.8 ratio Sodium 141 mmol/L N 136-145 Potassium 3.5 mmol/L N 3.5-5.1 Chloride 108 mmol/L High 98-107 Carbon Dioxide 26 mmol/L N 21-32 Anion Gap 7 mEq/L Low 8-16 Calcium 9.4 mg/dL N 8.5-10.1 Total Protein 7.9 g/dL N 6.4-8.2 Albumin 4.2 g/dL N 3.4-5.0 Globulin 3.7 g/dL N 1.9-4.3 Alb/Glob 1.1 ratio Bilirubin,Total 0.9 mg/dL N 0.2-1.0 Sgot/Ast 18 U/L N 15-37 SGPT/Alt 19 U/L N 12-78 Alkaline Phosphatase 58 U/L N 45-117 Type And Screen 03/16/2018 [facility]. Patient Blood Type A POS N LABORATORY [phone] Antibody Screen Negative N Negative Urine Drug Screen Inhouse 07/09/2017 In House Ua Cocaine - Ua Opiates - Ua Amphetamines - Urine Methanphetamines - Urine Benzodiazepines QN [place] - Urine Oxycodone QL - CBC 10/02/2016 [facility]. White Blood Count 5.8 K/uL N 3.1- 10.7 4 LABORATORY [phone] Red Blood Count 4.22 M/uL N 3.90-5.40 Hemoglobin 12.2 gm/dL N 11.6-15.8 Hematocrit 36.3 % N 36.0-46.1 Mean Cell Volume 86.0 fl N 80.9-99.0 Mean Corpuscular HGB 28.9 pg N 25.9-32.7 Mean Corpuscular HGB Conc 33.6 g/dL N 30.8-34.3 Platelet Count 282 K/uL N 155-360 Red Cell Distri Width %CV 13.1 % N 11.7-14.4 Mean Platelet Volume 10.3 fL N 8.9-12.4 Basic Metabolic 10/02/2016 [facility]. Glucose 113 mg/dL High 74-106 Panel LABORATORY [phone] BUN 2 mg/dL Low 7-18 Creatinine 0.6 mg/dL N 0.6-1.3 Glom Filtration Rate, Estimate >60 mL/min N >60 If >60 mL/min N >60 5 BUN/Creat 3.3 ratio N Sodium 143 mmol/L N 136-145 Potassium 3.1 mmol/L Low 3.5-5.1 Chloride 107 mmol/L N 98-107 Carbon Dioxide 28 mmol/L N 21-32 Anion Gap 8 mEq/L N 8-16 Calcium 8.6 mg/dL N 8.5-10.1 CBC 10/01/2016 [facility]. White Blood Count 6.1 K/uL N 3.1- 10.7 6 LABORATORY [phone] Red Blood Count 4.31 M/uL N 3.90-5.40 Hemoglobin 12.5 gm/dL N 11.6-15.8 Hematocrit 37.1 % N 36.0-46.1 Mean Cell Volume 86.1 fl N 80.9-99.0 Mean Corpuscular HGB 29.0 pg N 25.9-32.7 Mean Corpuscular HGB Conc 33.7 g/dL N 30.8-34.3 Platelet Count 288 K/uL N 155-360 Red Cell Distri Width %CV 13.1 % N 11.7-14.4 Mean Platelet Volume 10.0 fL N 8.9-12.4 Basic Metabolic 10/01/2016 [facility]. Glucose 110 mg/dL High 74-106 Panel LABORATORY [phone] BUN 4 mg/dL Low 7-18 Creatinine 0.6 mg/dL N 0.6-1.3 Glom Filtration Rate, Estimate >60 mL/min N >60 If >60 mL/min N >60 7 BUN/Creat 6.6 ratio N Sodium 143 mmol/L N 136-145 Potassium 3.6 mmol/L N 3.5-5.1 Chloride 109 mmol/L High 98-107 Carbon Dioxide 25 mmol/L N 21-32 Anion Gap 9 mEq/L N 8-16 Calcium 8.7 mg/dL N 8.5-10.1 Blood Culture 09/30/2016 [facility]. Blood Culture NO GROWTH: 8, 9 LABORATORY Aerobic FINAL <SEE [phone] NOTE> Blood Culture Anaerobic NO GROWTH: FINAL <SEE NOTE> 10 Blood Culture 09/30/2016 [facility]. Blood Culture NO GROWTH: 11 LABORATORY Aerobic FINAL <SEE [phone] NOTE> Blood Culture Anaerobic NO GROWTH: FINAL <SEE NOTE> 12 CBS W/Automated 09/30/2016 [facility]. White Blood 9.0 K/uL N 3.1-10.7 13 Diff LABORATORY Count [phone] Red Blood Count 5.04 M/uL N 3.90-5.40 Hemoglobin 14.5 gm/dL N 11.6-15.8 Hematocrit 42.9 % N 36.0-46.1 Mean Cell Volume 85.1 fl N 80.9-99.0 Mean Corpuscular HGB 28.8 pg N 25.9-32.7 Mean Corpuscular HGB Conc 33.8 g/dL N 30.8-34.3 Platelet Count 319 K/uL N 155-360 Red Cell Distri Width SD 39.9 fl N 3-47 Red Cell Distri Width %CV 13.1 % N 11.7-14.4 Mean Platelet Volume 9.9 fL N 8.9-12.4 Neut% 70.3 % N 40.4-72.8 Lymph % 22.7 % N 17.0-46.1 [place] % 5.1 % N 4.3-13.2 Eo% 1.3 % N 0.0-6.6 Bas% 0.6 % N 0.0-1.1 Neut# 6.33 K/uL N 1.8-7.0 Lymph # 2.04 K/uL N 1.8-7.0 [place] # 0.46 K/uL N 0.3-0.9 Eos # 0.12 K/uL N 0.0-0.5 Baso # 0.05 K/uL N 0.0-0.1 Urinalysis With 09/30/2016 [facility]. Urine Color YELLOW N Yellow Microscopic LABORATORY [phone] Urine Clarity CLEAR N Clear Urine Glucose - Dipstick NEGATIVE mg/dL N Negative Urine Bilirubin - Dipstick SMALL Abnormal Negative Urine Ketone >=80 mg/dL High Negative Urine Specific [place] >=1.030 N 1.010-1.030 Urine Blood SMALL Abnormal Negative Urine PH 6.0 Low 6.5-7.5 Urine Protein - Dipstick NEGATIVE mg/dL N Negative Urine Urobilinogen - Dipstick 0.2 E.U./dL N 0.2-1.0 Urine Nitrite - Dipstick NEGATIVE N Negative Urine Leuk Esterase NEGATIVE N Negative Urine RBC 0-2 rbc/hpf N 0-2 Urine WBC 2-5 wbc/hpf N 0-7 Urine Epithelial Cells MANY /lpf N None Seen 14 Urine Bacteria MODERATE Abnormal None Seen Source: URINE, CLEAN CAT <SEE NOTE> 15 Comprehensive Metabolic 09/30/2016 [facility]. Glucose 78 mg/ dL N 74-106 Panel LABORATORY [phone] BUN 10 mg/dL N 7-18 Creatinine 0.7 mg/dL N 0.6-1.3 Glom Filtration Rate, Estimate >60 mL/min N >60 If >60 mL/min N >60 16 BUN/Creat 14.2 ratio N Sodium 140 mmol/L N 136-145 Potassium 3.5 mmol/L N 3.5-5.1 Chloride 105 mmol/L N 98-107 Carbon Dioxide 23 mmol/L N 21-32 Anion Gap 12 mEq/L N 8-16 Calcium 9.0 mg/dL N 8.5-10.1 Total Protein 7.5 g/dL N 6.4-8.2 Albumin 4.0 g/dL N 3.4-5.0 Globulin 3.5 g/dL N 1.9-4.3 Alb/Glob 1.1 ratio N Bilirubin,Total 0.8 mg/dL N 0.2-1.0 Sgot/Ast 21 U/L N 15-37 SGPT/Alt 24 U/L N 12-78 Alkaline Phosphatase 76 U/L N 45-117 Drugs Of 09/30/2016 [facility]. Amphetamines Negative N Abuse-Urine Screen LABORATORY (Urine) 7 [phone] Barbiturates (Urine) POSITIVE Abnormal Benzodiazepines (Urine) Negative N Cannabinoids (Urine) Negative N Cocaine Metabolite (Urine) Negative N Methadone (Urine) Negative N Opiates (Urine) Negative N Urine Cutoffs * N 17 Laboratory 09/30/2016 [facility]. Carbamazepine 1.8 ug/mL Low 4.0-12.0 test finding LABORATORY [phone] Urine Culture 09/30/2016 [facility]. Urine Culture NO GROWTH: 18 LABORATORY FINAL <SEE [phone] NOTE> Laboratory 09/30/2016 [facility]. C. Difficile NEGATIVE 19 , test finding LABORATORY Toxin A/B FOR C. 20 [phone] <SEE NOTE> Laboratory 09/29/2016 Count Includes [facility] Lipase 106 U/L N 73-393 21 test finding LABORATORY [phone] HCG,Serum (Qualitative) NEGATIVE N (Negative) 22 Comprehensive Metabolic 09/29/2016 [facility]. Glucose 75 mg/ dL N 74-106 Panel LABORATORY [phone] BUN 9 mg/dL N 7-18 Creatinine 0.6 mg/dL N 0.6-1.3 Glom Filtration Rate, Estimate >60 mL/min N >60 If >60 mL/min N >60 23 BUN/Creat 15.0 ratio N Sodium 143 mmol/L N 136-145 Potassium 3.4 mmol/L Low 3.5-5.1 Chloride 107 mmol/L N 98-107 Carbon Dioxide 23 mmol/L N 21-32 Anion Gap 13 mEq/L N 8-16 Calcium 8.7 mg/dL N 8.5-10.1 Total Protein 7.2 g/dL N 6.4-8.2 Albumin 3.8 g/dL N 3.4-5.0 Globulin 3.4 g/dL N 1.9-4.3 Alb/Glob 1.1 ratio N Bilirubin,Total 0.8 mg/dL N 0.2-1.0 Sgot/Ast 17 U/L N 15-37 SGPT/Alt 23 U/L N 12-78 Alkaline Phosphatase 73 U/L N 45-117 CBS W/Automated 09/29/2016 [facility]. White Blood 8.1 K/uL N 3.1-10.7 Diff LABORATORY Count [phone] Red Blood Count 4.68 M/uL N 3.90-5.40 Hemoglobin 13.4 gm/dL N 11.6-15.8 Hematocrit 40.3 % N 36.0-46.1 Mean Cell Volume 86.1 fl N 80.9-99.0 Mean Corpuscular HGB 28.6 pg N 25.9-32.7 Mean Corpuscular HGB Conc 33.3 g/dL N 30.8-34.3 Platelet Count 284 K/uL N 155-360 Red Cell Distri Width SD 40.2 fl N 3-47 Red Cell Distri Width %CV 13.0 % N 11.7-14.4 Mean Platelet Volume 10.2 fL N 8.9-12.4 Neut% 67.8 % N 40.4-72.8 Lymph % 24.5 % N 17.0-46.1 [place] % 6.2 % N 4.3-13.2 Eo% 1.0 % N 0.0-6.6 Bas% 0.5 % N 0.0-1.1 Neut# 5.47 K/uL N 1.8-7.0 Lymph # 1.98 K/uL N 1.8-7.0 [place] # 0.50 K/uL N 0.3-0.9 Eos # 0.08 K/uL N 0.0-0.5 Baso # 0.04 K/uL N 0.0-0.1 CBS W/Automated 09/28/2016 Count Includes [facility] White Blood 6.1 K/uL N 3.1-10.7 24 Diff LABORATORY Count [phone] Red Blood Count 4.80 M/uL N 3.90-5.40 Hemoglobin 13.6 gm/dL N 11.6-15.8 Hematocrit 41.1 % N 36.0-46.1 Mean Cell Volume 85.6 fl N 80.9-99.0 Mean Corpuscular HGB 28.3 pg N 25.9-32.7 Mean Corpuscular HGB Conc 33.1 g/dL N 30.8-34.3 Platelet Count 304 K/uL N 155-360 Red Cell Distri Width SD 40.3 fl N 3-47 Red Cell Distri Width %CV 13.1 % N 11.7-14.4 Mean Platelet Volume 9.6 fL N 8.9-12.4 Neut% 57.2 % N 40.4-72.8 Lymph % 34.1 % N 17.0-46.1 [place] % 6.4 % N 4.3-13.2 Eo% 1.3 % N 0.0-6.6 Bas% 1.0 % N 0.0-1.1 Neut# 3.47 K/uL N 1.8-7.0 Lymph # 2.07 K/uL N 1.8-7.0 [place] # 0.39 K/uL N 0.3-0.9 Eos # 0.08 K/uL N 0.0-0.5 Baso # 0.06 K/uL N 0.0-0.1 Comprehensive Metabolic 09/28/2016 Count Includes [facility] Glucose 97 mg/ dL N 74-106 Panel LABORATORY [phone] BUN 13 mg/dL N 7-18 Creatinine 0.8 mg/dL N 0.6-1.3 Glom Filtration Rate, Estimate >60 mL/min N >60 If >60 mL/min N >60 25 BUN/Creat 16.2 ratio N Sodium 142 mmol/L N 136-145 Potassium 3.3 mmol/L Low 3.5-5.1 Chloride 106 mmol/L N 98-107 Carbon Dioxide 25 mmol/L N 21-32 Anion Gap 11 mEq/L N 8-16 Calcium 9.1 mg/dL N 8.5-10.1 Total Protein 8.0 g/dL N 6.4-8.2 Albumin 4.2 g/dL N 3.4-5.0 Globulin 3.8 g/dL N 1.9-4.3 Alb/Glob 1.1 ratio N Bilirubin,Total 1.0 mg/dL N 0.2-1.0 Sgot/Ast 19 U/L N 15-37 SGPT/Alt 24 U/L N 12-78 Alkaline Phosphatase 81 U/L N 45-117 Laboratory test finding 09/28/2016 [facility]. Lipase 144 U/L N 73-393 LABORATORY [phone] HCG,Serum (Qualitative) NEGATIVE N (Negative) Urine Drug Screen Inhouse 08/03/2016 In House Ua Cocaine - Ua Opiates - Ua Amphetamines - Urine Methanphetamines - Urine Benzodiazepines QN [place] - Urine Oxycodone QL - Urine Drug Screen Inhouse 06/08/2016 In House Ua Cocaine - Ua Opiates - Ua Amphetamines - Urine Methanphetamines - Urine Benzodiazepines QN [place] - Urine Oxycodone QL - CBC W/Automated 05/30/2016 [facility]. White Blood 6.8 K/uL 3.1-10.7 Diff LABORATORY Count [phone] Red Blood Count 4.63 M/uL 3.90-5.40 Hemoglobin [...] % 40.4-72.8 Lymph % 39.3 % 17.0-46.1 [place] % 5.4 % 4.3-13.2 Eo% 4.4 % 0.0-6.6 Bas% 0.4 % 0.0-1.1 Neut# 3.42 K/uL 1.8-7.0 Lymph # 2.67 K/uL 1.8-7.0 [place] # 0.37 K/uL 0.3-0.9 Eos # 0.30 K/uL 0.0-0.5 Baso # 0.03 K/uL 0.0-0.1 Laboratory test 05/30/2016 [facility]. Vitamin B12 446 pg/mL [phone] 26 finding LABORATORY [phone] Folic Acid 6.3 ng/mL 3.1-17.5 27 Ferritin 34 ng/mL 8-252 Iron-Tibc-%Sat 05/30/2016 [facility]. Serum Iron 84 g/dL 50-170 LABORATORY [phone] Total Iron Binding Capacity 360 g/dL 250-450 Transferrin %Saturation 23 % 12-57 Urine Drug Screen Inhouse 05/11/2016 In House Ua Cocaine - Ua Opiates - Ua Amphetamines - Urine Methanphetamines - Urine Benzodiazepines QN [place] - Urine Oxycodone QL - 1 SEVERE LOWER ABD PAIN, BLEEDING 2 Approximate Gestational Age and Total BHCG Range: 0.2 - 1 Week........................5-50 mIU/mL 1 - 2 Weeks.....................50-500 mIU/mL 2 - 3 Weeks..................100-5,000 mIU/mL 3 - 4 Weeks.................500-10,000 mIU/mL 4 - 5 Weeks...............1,000-50,000 mIU/mL 5 - 6 Weeks.............10,000-100,000 mIU/mL 6 - 8 Weeks.............15,000-200,000 mIU/mL 2 - 3 Months............10,000-100,000 mIU/mL 3 Note: Persistent reduction for 3 months or more in an eGFR <60 mL/min/1.73 m2 defines CKD. Patients with eGFR values >/=60 mL/min/1.73 m2 may also have CKD if evidence of persistent proteinuria is present. The original MDRD equation for estimated GFR is not valid for patients less than 18 years of age. Additional information may be found at www.kdoqi.org. 4 ABD PAIN, FAILED OUTPT THERAPY 5 [...] Patient Fasting? Y Procedures Description No Information Available Encounters Type Date Location Provider Dx Diagnosis Office Visit 09/24/2018 Main Office Melvin Yi F11.Maxim Opioid dependence, 3:45p MManuela uncomplicated G89.4 Chronic pain syndrome K30 Functional dyspepsia G50.1 Atypical facial pain Office Visit 08/27/2018 3:45p Main Office Trupti Yi1.20 Opioid dependence, Sherley Charles uncomplicated G89.4 Chronic pain syndrome M54.5 Low back pain G50.1 Atypical facial pain K30 Functional dyspepsia Office Visit 07/23/2018 10:30a Main Office Kassidy F11.20 Opioid dependence, Sherley Charles uncomplicated G89.4 Chronic pain syndrome M54.5 Low back pain G50.1 Atypical facial pain Office Visit 06/25/2018 11:30a Main Office Kassidy F11.20 Opioid dependence, Sherley Charles uncomplicated G89.4 Chronic pain syndrome J01.90 Acute sinusitis, unspecified Z23 Encounter for immunization Z41.8 Encntr for oth proc for purpose oth [facility] Office Visit 05/28/2018 11:45a Main Office Kassidy F11.20 Opioid dependence, Sherley Cahrles uncomplicated G89.4 Chronic pain syndrome Office Visit 04/29/2018 9:45a Main Office Kassidy F11.20 Opioid dependence, Sherley Charles uncomplicated G89.4 Chronic pain syndrome M54.5 Low back pain Office Visit 03/25/2018 11:15a Main Office Kassidy F11.20 Opioid dependence, Sherley Charles uncomplicated G89.4 Chronic pain syndrome M54.5 Low back pain Z30.09 Encounter for oth general coun and advice on contraception O02.1 Missed Office Visit 02/25/2018 11:15a Main Office Kassidy F11.20 Opioid dependence, Sherley Charles uncomplicated G89.4 Chronic pain syndrome M54.5 Low back pain Office Visit 01/28/2018 11:15a Main Office Kassidy F11.20 Opioid dependence, Sherley Charles uncomplicated G89.4 Chronic pain syndrome M54.5 Low back pain K30 Functional dyspepsia Office Visit 12/24/2017 2:30p Main Office Kassidy F11.20 Opioid dependence, Sherley Charles uncomplicated G89.4 Chronic pain syndrome M54.5 Low back pain K30 Functional dyspepsia Office Visit 11/13/2017 11:45a Main Office Kassidy F11.20 Opioid dependence, Sherley Charles uncomplicated G89.4 Chronic pain syndrome M54.5 Low back pain K30 Functional dyspepsia Office Visit 10/08/2017 9:30a Main Office Kassidy F11.20 Opioid dependence, Melvin, M.D. uncomplicated G89.4 Chronic pain syndrome Office Visit 09/03/2017 4:00p Main Office Kassidy F11.20 Opioid dependence, Sherley Charles uncomplicated M54.5 Low back pain G89.4 Chronic pain syndrome Office Visit 08/06/2017 9:30a Main Office Kassidy F11.20 Opioid dependence, Sherley Charles uncomplicated M54.5 Low back pain G89.4 Chronic pain syndrome Office Visit 07/09/2017 2:45p Main Office Kassidy F11.20 Opioid dependence, Sherley Charles uncomplicated M54.5 Low back pain G89.4 Chronic pain syndrome Office Visit 06/11/2017 11:15a Main Office Kassidy F11.20 Opioid dependence, Sherley Charles uncomplicated M54.5 Low back pain G89.4 Chronic pain syndrome K30 Functional dyspepsia F17.210 Nicotine dependence, cigarettes, uncomplicated Z23 Encounter for immunization Z41.8 Encntr [facility] Office Visit 05/14/2017 9:30a Main Office Kassidy F11.20 Opioid dependence, Sherley Charles uncomplicated M54.5 Low back pain G89.4 Chronic pain syndrome K30 Functional dyspepsia Z30.09 Encounter for oth general coun and advice on contraception F17.210 Nicotine dependence, cigarettes, uncomplicated Office Visit 04/16/2017 9:45a Main Office Kassidy F11.20 Opioid dependence, Sherley Charles uncomplicated M54.5 Low back pain G89.4 Chronic pain syndrome K30 Functional dyspepsia Office Visit 03/05/2017 9:45a Main Office Kassidy F11.20 Opioid dependence, Sherley Charles uncomplicated M54.5 Low back pain K30 Functional dyspepsia Office Visit 01/22/2017 10:15a Main Office Kassidy F11.20 Opioid dependence, Sherley Charlse uncomplicated M54.5 Low back pain G89.4 Chronic pain syndrome R10.30 Lower abdominal pain, unspecified K30 Functional dyspepsia Office Visit 12/21/2016 2:00p Main Office Kassidy F11.20 Opioid dependence, hSerley Charles uncomplicated M54.5 Low back pain G89.4 Chronic pain syndrome R10.30 Lower abdominal pain, unspecified K30 Functional dyspepsia Office Visit 11/21/2016 11:30a Main Office Kassidy F11.20 Opioid dependenceMelvin M.D. uncomplicated M54.5 Low back pain G89.4 Chronic pain syndrome R10.30 Lower abdominal pain, unspecified R14.3 Flatulence R14.2 Eructation Office Visit 10/24/2016 1:15p Main Office Kassidy F11.20 Opioid dependenceMelvin M.D. uncomplicated M54.5 Low back pain G89.4 Chronic pain syndrome G50.1 Atypical facial pain R19.7 Diarrhea, unspecified Office Visit 09/26/2016 9:45a Main Office Kassidy F11.20 Opioid dependenceMelvin M.D. uncomplicated M54.5 Low back pain G89.4 Chronic pain syndrome H92.01 Otalgia, right ear Office Visit 08/29/2016 11:15a Main Office Kassidy F11.20 Opioid dependenceMelvin M.D. uncomplicated M54.5 Low back pain G89.4 Chronic pain syndrome H92.01 Otalgia, right ear Office Visit 08/03/2016 11:15a Main Office [place] F11.20 Opioid dependenceMelvin M.D. uncomplicated M54.5 Low back pain G89.4 Chronic pain syndrome J01.90 Acute sinusitis, unspecified Office Visit 07/07/2016 9:45a Main Office [place] F11.20 Opioid Melivn norris M.D. uncomplicated M54.5 Low back pain G89.4 Chronic pain syndrome K08.9 Disorder of teeth and supporting structures, unspecified Z23 Encounter for immunization Z41.8 Encntr for oth proc for purpose oth [facility] Office Visit 06/08/2016 10:45a Main Office [place] F11.20 Opioid dependenceMelvin M.D. uncomplicated Office Visit 05/11/2016 2:00p Main Office [place] F11.20 Opioid dependenceMelvin M.D. uncomplicated M54.5 Low back pain G89.4 Chronic pain syndrome D64.9 Anemia, unspecified F17.210 Nicotine dependence, cigarettes, uncomplicated Plan of Treatment 09/24/2018 - Melvin Yi M.D.F11.20 Opioid dependence, uncomplicatedFollow up:RTO 1 vbcvzB09.4 Chronic pain [id number] Functional rjmfmkrqdW17.1 Atypical facial pain
[2018-10-18 14:10] VITALS: BP 114/69
[2018-10-18] MEDS ORDERED: Albuterol 2.5 MG/3 ML NEB.SOL* (0.083%) INH ONE (14:16)
--- NOTE | 2018-10-18 14:18 | UC ---
UC General HPI - HPI Summary HPI Summary: 4-5 DAY HX SORE THROAT FOLLOWED BY HEAD AND CHEST CONGESTION. NOW FATIGUED AND NOTES SOB WITH EXERTION. NO CP OR FEVER AND NO HX ASTHMA. - History of Current Complaint Chief Complaint: UCGeneralIllness Stated Complaint: BODY ACHES, SORE THROAT Time Seen by Provider: 10/18/18 14:01 Hx Obtained From: Patient Hx Last Menstrual Period: 09/28/18 Onset/Duration: Gradual Onset Timing: Constant Pain Intensity: 2 Associated Signs & Symptoms: Positive: Cough, SOB. Negative: Chest Pain, Fever - Allergy/Home Medications Allergies/Adverse Reactions: Allergies Allergy/AdvReac Type Severity Reaction Status Date / Time Sulfa (Sulfonamide Allergy Unknown Verified 10/18/18 14:04 Antibiotics) Reaction Details PMH/Surg Hx/FS Hx/Imm Hx Previously Healthy: Yes - Surgical History Surgical History: Yes Surgery Procedure, Year, and Place: tonsillectomy - Family History Known Family History: Negative: Cardiac Disease, Hypertension, Diabetes - Social History Occupation: Employed Full-time Alcohol Use: None Substance Use Type: None Smoking Status (MU): Heavy Every Day Tobacco Smoker Type: eCigarettes Amount Used/How Often: 1/2 PPD Length of Time of Smoking/Using Tobacco: started age 20 Have You Smoked in the Last Year: Yes - Immunization History Most Recent Tetanus Shot: unknown Vaccination Up to Date: Yes Review of Systems All Other Systems Reviewed And Are Negative: Yes Constitutional: Positive: Negative Skin: Positive: Negative Eyes: Positive: Negative ENT: Positive: Sore Throat, Sinus Congestion Respiratory: Positive: Shortness Of Breath, Cough Cardiovascular: Positive: Negative Gastrointestinal: Positive: Negative Genitourinary: Positive: Negative Motor: Positive: Negative Neurovascular: Positive: Negative Musculoskeletal: Positive: Negative Neurological: Positive: Negative Psychological: Positive: Negative Is Patient Immunocompromised?: No Physical Exam Triage Information Reviewed: Yes Appearance: Well-Appearing Vital Signs: Initial Vital Signs Temp 98.7 F 10/18/18 14:04 Pulse 87 10/18/18 14:04 Resp 16 10/18/18 14:04 BP 114/69 10/18/18 14:04 Pulse Ox 98 10/18/18 14:04 Vital Signs Reviewed: Yes Eyes: Positive: Conjunctiva Clear ENT: Positive: Pharyngeal erythema, Nasal congestion, TMs normal, Uvula midline. Negative: Nasal drainage, Trismus, Muffled voice, Hoarse voice, Sinus tenderness Neck: Positive: Supple, Tenderness @ - PERITONSILAR NODES THAT ARE ENLARGED. Respiratory: Positive: Lungs clear, No respiratory distress, Decreased breath sounds Cardiovascular: Positive: RRR, No Murmur Abdomen Description: Positive: Nontender, No Organomegaly, Soft Bowel Sounds: Positive: Present Musculoskeletal: Positive: ROM Intact Neurological: Positive: Alert Psychological: Positive: Age Appropriate Behavior Skin Exam: Normal Diagnostics - Laboratory Diagnostic Studies Completed/Ordered: RAPID STREP=NEG Re-Evaluation - Re-Evaluation First Eval Re-Evaluation Time: 14:55 Change: Improved - better aeration Course/Dx - Course Course Of Treatment: WORSENING COUGH, CHEST CONGESTION AND PURULENT SPUTUM THUS WILL ADD ZPAK IF NOT IMPROVING IN 24 HOURS OR SOONER IF WORSE. - Differential Dx - Multi-Symptom Differential Diagnoses: Other - sinusitis, viral uri, strep throat, bronchitis, pneumonia. - Diagnoses Provider Diagnosis: URI (upper respiratory infection), Bronchospasm, acute Discharge - Sign-Out/Discharge Documenting (check all that apply): Patient Departure All imaging exams completed and their final reports reviewed: No Studies - Discharge Plan Condition: Stable Disposition: HOME Prescriptions: Albuterol HFA INHALER* [Ventolin HFA Inhaler*] 2 puff INH Q6H #1 mdi Azithromycin TAB* [Zithromax TAB (Z-MAY) 250 mg #6 tabs] 2 tab PO .TODAY, THEN 1 DAILY #1 may Patient Education Materials: Upper Respiratory Infection (DC), Bronchospasm (ED ) Referrals: Melvin Yi MD [Primary Care Provider] - 4 Days Additional Instructions: USE THE ALBUTEROL INHALER X 24 HOURS, IF NOT IMPROVING START THE ANTIBIOTIC. START IT SOONER IF WORSE. - Billing Disposition and Condition Condition: STABLE Disposition: Home
== END 2018-10-18 15:12 | disposition home or self-care (01) ==
LOC: UCCORT 12:08
DX: J98.01 Acute bronchospasm (principal); J06.9 Acute upper respiratory infection, unspecified; Z88.2 Allergy status to sulfonamides; F17.210 Nicotine dependence, cigarettes, uncomplicated
CPT/HCPCS: 87651; 99212; G0463

== ENCOUNTER 2018-12-29 16:05 | Emergency (ER) | payer OTHER ==
--- OUTSIDE RECORDS SUMMARY | 2018-12-29 17:55 | XMS REPORT | Continuity of Care Document ---
:1985 External Reference #:[id number] Author Name Melvin Yi M.D. Address [address] [facility] [address] [place] [address] Care Team Providers Name Role Phone HCP given Primary Care Physician Unavailable Payers Date Identification Numbers Payment Provider Subscriber Policy Number: [id number] [facility] [employer] Number: [id number] [address] [address] PayID: [id number] [place] [address] Advance Directives Description No Information Available Problems Date Description Provider Status Onset: 05/14/2017 Opioid dependence Melvin Yi M.D. Active Onset: 05/14/2017 Tobacco user Melvin Yi M.D. Active Onset: 05/14/2017 Low back pain Melvin Yi M.D. Active Family History Date Family Member(s) Observation Comments Mother Anemia Onset: Children None (05/11/2016) Siblings 1 brother (A&W) Paternal Grandmother due to Breast () - in her Cancer late 50s Social History Type Date Description Comments Sex Unknown Education Highest Level Completed College Marital Status Single Occupation 05/11/2016 [employer] works for [employer] ([email or web address]) Tobacco Use Start: Unknown End: Former Cigarette Smoker 1ppd at peak Unknown 05/14/17: pt noted smoking 1/2ppd and in midst of quitting 10/22/18: pt states no longer smoking, is vaping but nicotine free Smoking Status Reviewed: 10/22/18 Former Cigarette Smoker 1ppd at peak 05/14/17: pt noted smoking 1/2ppd and in midst of quitting 10/22/18: pt states no longer smoking, is vaping but nicotine free ETOH Use 05/11/2016 Rarely consumes alcohol Exercise Type/Frequency 05/11/2016 Exercises regularly Age 1st [place] 16 Years Old # Partners in a 05/11/2016 Partners 5-10 Lifetime STD's 05/11/2016 No STD History Allergies, Adverse Reactions, Alerts Date Description Reaction Status Severity Comments 05/11/2016 Sulfa Active swelling, hives Medications Medication Date Status Form Strength Qnty SIG Indications Ordering Provider Omeprazole 08/27 Active Capsules 40mg 30cap 1 by mouth K30 Silcoff, DR s every day as Melvin, needed for M.D. dyspepsia; stop periodically and resume when/if symtoms return Apri 03/24 Active Tablets 0.15-30mg 84tab 1 by mouth Z30.09 Silcoff, -mcg s every day; for Melvin, contraception M.DAnjana Buprenorphine 04/27 Active Tablets 8-2mg 45tab 1 in the M54.5 Silcoff, HCL-Naloxone Sub s morning, 10/22 Melvin, HCL in afternoon; M.DAnjana for chronic pain and opioid dependence; prescriber# [id number]; rx due 12/28/18 G89.4 F11.20 Ibuprofen 04/27/2016 Active Tablets 200mg as directed as Unknown needed Azithromycin 11/18/2018 - Hx Tablets 250mg Take Two J01.9 Unknown 11/24/2018 Tablets By 0 Mouth AT Once On The First Day Then Take One Daily Thereafter Proair HFA 10/18/2018 - Hx Aerosol 108(90Base) Inhale Two J01.9 Unknown 11/01/2018 mcg/Act Puffs By Mouth 0 Every 6 Hours R05 J20.9 Cefdinir 06/20/2018 - Hx Capsules 300mg one cap po twice J01.90 Unknown 06/30/2018 daily x 10 days; for sinusitis Omeprazole 11/13/2017 - Hx Capsules DR 40mg 30c 1 by mouth every K30 Silcoff, 01/27/2018 aps day Sherley Charles Apri 05/14/2017 - Hx Tablets 0.15-30mg 84t 1 by mouth every Z30.09 Silcoff, 08/02/2017 -mcg abs day; for Melvin contraception M.D. Famotidine 04/16/2017 - Hx Tablets 20mg 30t take one tablet R14.2 Silcoff, 05/14/2017 abs by mouth 10 Melvin, minutes before Sherley supper; stop after [...] CPT Code Status Date Vaccine Lot # [id number] Given 06/25/2018 Influenza Virus Vaccine, Quadrivalent, Split, [id number] Preservative Free 09798 Given 06/11/2017 Influenza Virus Vaccine, Quadrivalent, Split, [id number] Preservative Free 97744 Given 07/07/2016 Influenza Virus Vaccine, Quadrivalent, Split, [id number] Preservative Free Vital Signs Date Vital Result Comment 12/17/2018 4:26pm BP Systolic 108 mmHg BP Diastolic 66 mmHg Weight 173.50 lb w/boots 11/26/2018 1:35pm BP Systolic 112 mmHg BP Diastolic 68 mmHg 10/22/2018 1:34pm BP Systolic 100 mmHg BP Diastolic 60 mmHg Weight 172.00 lb w/boots 09/24/2018 4:12pm BP Systolic 112 mmHg BP [...] Date Facility Test Result H/L Range Note Laboratory test 10/18/2018 [facility] Rapid Strep Negative Negative 1 finding [phone] Molecular Urine Drug Screen 06/25/2018 In House Ua Cocaine - Inhouse Ua Opiates - Ua Amphetamines - Urine Methanphetamines - Urine Benzodiazepines QN [place] - Urine Oxycodone QL - Laboratory test 03/16/2018 [facility]. HCG, Quant 5031.0 2 , 3 finding LABORATORY mIU/mL [phone] Comprehensive 03/16/2018 [facility]. Glucose 108 mg/dL High 74-10 Metabolic Panel LABORATORY 6 [phone] BUN 9 mg/dL N 7-18 Creatinine 0.7 mg/dL N 0.6-1.3 Glom Filtration Rate, Estimate >60 mL/min >60 If >60 mL/min >60 4 BUN/Creat 12.8 ratio Sodium 141 mmol/L N [...] U/L N 45-117 Type And Screen 03/16/2018 [facility]. Patient Blood Type A POS N LABORATORY [phone] Antibody Screen Negative N Negative Urine Drug Screen Inhouse 07/09/2017 In House Ua Cocaine - Ua Opiates - Ua Amphetamines - Urine Methanphetamines - Urine Benzodiazepines QN [place] - Urine Oxycodone QL - CBC 10/02/2016 [facility]. White Blood Count 5.8 K/uL N 3.1- 10.7 5 LABORATORY [phone] Red Blood Count 4.22 M/uL N 3.90-5.40 [...] 10.3 fL N 8.9-12.4 Basic Metabolic 10/02/2016 [facility]. Glucose 113 mg/dL High 74-106 Panel LABORATORY [phone] BUN 2 mg/dL Low 7-18 Creatinine 0.6 mg/dL N 0.6-1.3 Glom Filtration Rate, Estimate >60 mL/min N >60 If >60 mL/min N >60 6 BUN/Creat 3.3 ratio N Sodium 143 mmol/L N 136-145 Potassium 3.1 mmol/L Low 3.5-5.1 Chloride 107 mmol/L N 98-107 Carbon Dioxide 28 mmol/L N 21-32 Anion Gap 8 mEq/L N 8-16 Calcium 8.6 mg/dL N 8.5-10.1 CBC 10/01/2016 [facility]. White Blood Count 6.1 K/uL N 3.1- 10.7 7 LABORATORY [phone] Red Blood Count 4.31 M/uL N 3.90-5.40 [...] 10.0 fL N 8.9-12.4 Basic Metabolic 10/01/2016 [facility]. Glucose 110 mg/dL High 74-106 Panel LABORATORY [phone] BUN 4 mg/dL Low 7-18 Creatinine 0.6 mg/dL N 0.6-1.3 Glom Filtration Rate, Estimate >60 mL/min N >60 If >60 mL/min N >60 8 BUN/Creat 6.6 ratio N Sodium 143 mmol/L N 136-145 Potassium 3.6 mmol/L N 3.5-5.1 Chloride 109 mmol/L High 98-107 Carbon Dioxide 25 mmol/L N 21-32 Anion Gap 9 mEq/L N 8-16 Calcium 8.7 mg/dL N 8.5-10.1 Blood Culture 09/30/2016 [facility]. Blood Culture NO GROWTH: 9, 10 LABORATORY Aerobic FINAL <SEE [phone] NOTE> Blood Culture Anaerobic NO GROWTH: FINAL <SEE NOTE> 11 Blood Culture 09/30/2016 [facility]. Blood Culture NO GROWTH: 12 LABORATORY Aerobic FINAL <SEE [phone] NOTE> Blood Culture Anaerobic NO GROWTH: FINAL <SEE NOTE> 13 CBS W/Automated 09/30/2016 [facility]. White Blood 9.0 K/uL N 3.1-10.7 14 Diff LABORATORY Count [phone] Red Blood Count 5.04 M/uL N 3.90-5.40 [...] 40.4-72.8 Lymph % 22.7 % N 17.0-46.1 [place] % 5.1 % N 4.3-13.2 Eo% 1.3 % N 0.0-6.6 Bas% 0.6 % N 0.0-1.1 Neut# 6.33 K/uL N 1.8-7.0 Lymph # 2.04 K/uL N 1.8-7.0 [place] # 0.46 K/uL N 0.3-0.9 Eos # 0.12 K/uL N 0.0-0.5 Baso # 0.05 K/uL N 0.0-0.1 Urinalysis With 09/30/2016 [facility]. Urine Color YELLOW N Yellow Microscopic LABORATORY [phone] Urine Clarity CLEAR N Clear Urine Glucose - Dipstick NEGATIVE mg/dL N Negative Urine Bilirubin - Dipstick SMALL Abnormal Negative Urine Ketone >=80 mg/dL High Negative Urine Specific [place] >=1.030 N 1.010-1.030 Urine Blood SMALL Abnormal Negative Urine PH 6.0 Low 6.5-7.5 Urine Protein - Dipstick NEGATIVE mg/dL N Negative Urine Urobilinogen - Dipstick 0.2 E.U./dL N 0.2-1.0 Urine Nitrite - Dipstick NEGATIVE N Negative Urine Leuk Esterase NEGATIVE N Negative Urine RBC 0-2 rbc/hpf N 0-2 Urine WBC 2-5 wbc/hpf N 0-7 Urine Epithelial Cells MANY /lpf N None Seen 15 Urine Bacteria MODERATE Abnormal None Seen Source: URINE, CLEAN CAT <SEE NOTE> 16 Comprehensive Metabolic 09/30/2016 [facility]. Glucose 78 mg/ dL N 74-106 Panel LABORATORY [phone] BUN 10 mg/dL N 7-18 Creatinine 0.7 mg/dL N 0.6-1.3 Glom Filtration Rate, Estimate >60 mL/min N >60 If >60 mL/min N >60 17 BUN/Creat 14.2 ratio N Sodium 140 mmol/L [...] 76 U/L N 45-117 Drugs Of 09/30/2016 [facility]. Amphetamines Negative N Abuse-Urine Screen LABORATORY (Urine) 7 [phone] Barbiturates (Urine) POSITIVE Abnormal Benzodiazepines (Urine) Negative N Cannabinoids (Urine) Negative N Cocaine Metabolite (Urine) Negative N Methadone (Urine) Negative N Opiates (Urine) Negative N Urine Cutoffs * N 18 Laboratory 09/30/2016 [facility]. Carbamazepine 1.8 ug/mL Low 4.0-12.0 test finding LABORATORY [phone] Urine Culture 09/30/2016 [facility] Urine Culture NO GROWTH: 19 LABORATORY FINAL <SEE [phone] NOTE> Laboratory 09/30/2016 [facility]. C. Difficile NEGATIVE 20 , test finding LABORATORY Toxin A/B FOR C. 21 [phone] <SEE NOTE> Laboratory 09/29/2016 [facility]. Lipase 106 U/L N 73-393 22 test finding LABORATORY [phone] HCG,Serum (Qualitative) NEGATIVE N (Negative) 23 Comprehensive Metabolic 09/29/2016 [facility]. Glucose 75 mg/ dL N 74-106 Panel LABORATORY [phone] BUN 9 mg/dL N 7-18 Creatinine 0.6 mg/dL N 0.6-1.3 Glom Filtration Rate, Estimate >60 mL/min N >60 If >60 mL/min N >60 24 BUN/Creat 15.0 ratio N Sodium 143 mmol/L [...] 73 U/L N 45-117 CBS W/Automated 09/29/2016 [facility]. White Blood 8.1 K/uL N 3.1-10.7 Diff LABORATORY Count [phone] Red Blood Count 4.68 M/uL N 3.90-5.40 [...] 40.4-72.8 Lymph % 24.5 % N 17.0-46.1 [place] % 6.2 % N 4.3-13.2 Eo% 1.0 % N 0.0-6.6 Bas% 0.5 % N 0.0-1.1 Neut# 5.47 K/uL N 1.8-7.0 Lymph # 1.98 K/uL N 1.8-7.0 [place] # 0.50 K/uL N 0.3-0.9 Eos # 0.08 K/uL N 0.0-0.5 Baso # 0.04 K/uL N 0.0-0.1 CBS W/Automated 09/28/2016 [facility]. White Blood 6.1 K/uL N 3.1-10.7 25 Diff LABORATORY Count [phone] Red Blood Count 4.80 M/uL N 3.90-5.40 [...] 40.4-72.8 Lymph % 34.1 % N 17.0-46.1 [place] % 6.4 % N 4.3-13.2 Eo% 1.3 % N 0.0-6.6 Bas% 1.0 % N 0.0-1.1 Neut# 3.47 K/uL N 1.8-7.0 Lymph # 2.07 K/uL N 1.8-7.0 [place] # 0.39 K/uL N 0.3-0.9 Eos # 0.08 K/uL N 0.0-0.5 Baso # 0.06 K/uL N 0.0-0.1 Comprehensive Metabolic 09/28/2016 [facility]. Glucose 97 mg/ dL N 74-106 Panel LABORATORY [phone] BUN 13 mg/dL N 7-18 Creatinine 0.8 mg/dL N 0.6-1.3 Glom Filtration Rate, Estimate >60 mL/min N >60 If >60 mL/min N >60 26 BUN/Creat 16.2 ratio N Sodium 142 mmol/L [...] U/L N 45-117 Laboratory test finding 09/28/2016 [facility]. Lipase 144 U/L N 73-393 LABORATORY [phone] HCG,Serum (Qualitative) NEGATIVE N (Negative) Urine Drug Screen Inhouse 08/03/2016 In House Ua Cocaine - Ua Opiates - Ua Amphetamines - Urine Methanphetamines - Urine Benzodiazepines QN [place] - Urine Oxycodone QL - Urine Drug Screen Inhouse 06/08/2016 In House Ua Cocaine - Ua Opiates - Ua Amphetamines - Urine Methanphetamines - Urine Benzodiazepines QN [place] - Urine Oxycodone QL - CBC W/Automated 05/30/2016 [facility]. White Blood 6.8 K/uL 3.1-10.7 Diff LABORATORY Count [phone] Red Blood Count 4.63 M/uL 3.90-5.40 Hemoglobin [...] % 40.4-72.8 Lymph % 39.3 % 17.0-46.1 [place] % 5.4 % 4.3-13.2 Eo% 4.4 % 0.0-6.6 Bas% 0.4 % 0.0-1.1 Neut# 3.42 K/uL 1.8-7.0 Lymph # 2.67 K/uL 1.8-7.0 [place] # 0.37 K/uL 0.3-0.9 Eos # 0.30 K/uL 0.0-0.5 Baso # 0.03 K/uL 0.0-0.1 Laboratory test 05/30/2016 [facility] Vitamin B12 446 pg/mL [phone] finding LABORATORY [phone] Folic Acid 6.3 ng/mL 3.1-17.5 28 Ferritin 34 ng/mL 8-252 Iron-Tibc-%Sat 05/30/2016 [facility] Serum Iron 84 g/dL 50-170 LABORATORY [phone] Total Iron Binding Capacity 360 g/dL 250-450 Transferrin %Saturation 23 % 12-57 Urine Drug Screen Inhouse 05/11/2016 In House Ua Cocaine - Ua Opiates - Ua Amphetamines - Urine Methanphetamines - Urine Benzodiazepines QN [place] - Urine Oxycodone QL - 1 Peg Driver: [id number] 2 SEVERE LOWER ABD PAIN, BLEEDING 3 Approximate Gestational Age and Total BHCG Range: 0.2 - 1 Week........................5-50 mIU/mL 1 - 2 Weeks.....................50-500 mIU/mL 2 - 3 Weeks..................100-5,000 mIU/mL 3 - 4 Weeks.................500-10,000 mIU/mL 4 - 5 Weeks...............1,000-50,000 mIU/mL 5 - 6 Weeks.............10,000-100,000 mIU/mL 6 - 8 Weeks.............15,000-200,000 mIU/mL 2 - 3 Months............10,000-100,000 mIU/mL 4 Note: Persistent reduction for 3 months or more in an eGFR <60 mL/min/1.73 m2 defines CKD. Patients with eGFR values >/=60 mL/min/1.73 m2 may also have CKD if evidence of persistent proteinuria is present. The original MDRD equation for estimated GFR is not valid for patients less than 18 years of age. Additional information may be found at www.[email or web address]. 5 ABD PAIN, FAILED OUTPT THERAPY 6 Note: Persistent reduction for 3 months or more in an eGFR <60 mL/min/1.73 m2 defines CKD. Patients with eGFR values >/=60 mL/min/1.73 m2 may also have CKD if evidence of persistent proteinuria is present. The original MDRD equation for estimated GFR is not valid for patients less than 18 years of age. Additional information may be found at www.[email or web address]. 7 ABD PAIN FAILED OUTPT THERAPY 8 Note: Persistent reduction for 3 months or more in an eGFR <60 mL/min/1.73 m2 defines CKD. Patients with eGFR values >/=60 mL/min/1.73 m2 may also have CKD if evidence of persistent proteinuria is present. The original MDRD equation for estimated GFR is not valid for patients less than 18 years of age. Additional information may be found at www.[email or web address]. 9 ABD PAIN, FAILED OUTPT THERAPY 10 NO GROWTH: FINAL REPORT 11 NO GROWTH: FINAL REPORT 12 NO GROWTH: FINAL REPORT 13 NO GROWTH: FINAL REPORT 14 ABD PAIN FAILED OUTPT THERAPY 15 POSSIBLE UROGENITAL CONTAMINATION. 16 URINE, CLEAN CATCH 17 Note: Persistent reduction for 3 months or more in an eGFR <60 mL/min/1.73 m2 defines CKD. Patients with eGFR values >/=60 mL/min/1.73 m2 may also have CKD if evidence of persistent proteinuria is present. The original MDRD equation for estimated GFR is not valid for patients less than 18 years of age. Additional information may be found at www.[email or web address]. 18 URINE SPECIMENS ARE SCREENED AT THE LISTED CUTOFFS DRUG CLASS INITIAL TEST LEVEL Amphetamines 1000 ng/mL Barbiturates 200 ng/mL Benzodiazepines 200 ng/mL Cannabinoids 50 ng/mL Cocaine Metabolite 300 ng/mL Methadone 300 ng/mL Opiates 300 ng/mL Any PRESUMPTIVE POSITIVE findings are UNCONFIRMED. Confirmatory testing is suggested if findings are unexpected. Please contact laboratory if confirmatory testing is desired. SPECIMENS ARE HELD FOR 72 HOURS. 19 NO GROWTH: FINAL REPORT 20 ABD PAIN, FAILED OUTPT THERAPY 21 NEGATIVE FOR C. DIFFICILE TOXIN A/B. CORRELATE RESULTS WITH CLINICAL CONDITION. 22 SEVERE CENTRAL ABD PAIN,SEEN EARLIER NOT BETTER 23 SERUM SPECIMEN 24 Note: Persistent reduction for 3 months or more in an eGFR <60 mL/min/1.73 m2 defines CKD. Patients with eGFR values >/=60 mL/min/1.73 m2 may also have CKD if evidence of persistent proteinuria is present. The original MDRD equation for estimated GFR is not valid for patients less than 18 years of age. Additional information may be found at www.[email or web address]. 25 STOMACH PAIN 26 Note: Persistent reduction for 3 months or more in an eGFR <60 mL/min/1.73 m2 defines CKD. Patients with eGFR values >/=60 mL/min/1.73 m2 may also have CKD if evidence of persistent proteinuria is present. The original MDRD equation for estimated GFR is not valid for patients less than 18 years of age. Additional information may be found at www.[email or web address]. 27 QUERY: Is Patient Fasting? Y 28 QUERY: Is Patient Fasting? Y Procedures Description No Information Available Encounters Type Date Location Provider Dx Diagnosis Office Visit 12/17/2018 Main Office Melvin Yi F11.20 Opioid dependence, 3:45p Sherley uncomplicated G89.4 Chronic pain syndrome M54.5 Low back pain Office Visit 11/26/2018 1:45p Main Office Trupti Yi1.Maxim Opioid dependence, Sherley Charles uncomplicated G89.4 Chronic pain syndrome Office Visit 10/22/2018 1:30p Main Office Trupti Yi1.20 Opioid dependence, Sherley Charles uncomplicated G89.4 Chronic pain syndrome M54.5 Low back pain G50.1 Atypical facial pain J01.90 Acute sinusitis, unspecified K30 Functional dyspepsia Office Visit 09/24/2018 3:45p Main Office Trupti Yi1.Maxim Opioid dependence, Sherley Charles uncomplicated G89.4 Chronic pain syndrome K30 Functional dyspepsia G50.1 Atypical facial pain Office Visit 08/27/2018 3:45p Main Office Kassidy F11.20 Opioid dependence, Sherley Charles uncomplicated G89.4 Chronic pain syndrome M54.5 Low back pain 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 uncomplicated G89.4 Chronic pain syndrome M54.5 Low back pain G50.1 Atypical facial pain Office Visit 06/25/2018 11:30a Main Office Kassidy F11.20 Opioid dependence, Sherley Charles uncomplicated G89.4 Chronic pain syndrome J01.90 Acute sinusitis, unspecified Z23 Encounter for immunization Z41.8 Encntr for oth proc for purpose oth [facility] Office Visit 05/28/2018 11:45a Main Office Kassidy F11.20 Opioid dependenceMelvin M.D. uncomplicated G89.4 Chronic pain syndrome Office Visit 04/29/2018 9:45a Main Office Trupti Yi1.20 Opioid dependenceMelvin M.D. uncomplicated G89.4 Chronic pain syndrome M54.5 Low back pain Office Visit 03/25/2018 11:15a Main Office Kassidy F11.20 Opioid dependence, Sherley Charles uncomplicated G89.4 Chronic pain syndrome M54.5 Low back pain Z30.09 Encounter for [facility] and advice on contraception O02.1 [...] dyspepsia Office Visit 11/13/2017 11:45a Main Office Kassidy, F11.20 Opioid dependence, Sherley Charles uncomplicated G89.4 Chronic pain syndrome M54.5 Low back pain K30 Functional dyspepsia Office Visit 10/08/2017 9:30a Main Office Kassidy, F11.20 Opioid dependence, Sherley Charles uncomplicated G89.4 Chronic pain syndrome Office Visit [...] Encntr for oth proc for purpose oth [facility] Office Visit 05/14/2017 9:30a Main Office Kassidy [...] 03/05/2017 9:45a Main Office Kassidy F11.20 Opioid dependenceMelvin M.D. uncomplicated M54.5 Low back pain K30 Functional dyspepsia Office Visit 01/22/2017 10:15a Main Office Kassidy F11.20 Opioid dependenceMelvin M.D. uncomplicated M54.5 Low back pain G89.4 Chronic pain syndrome R10.30 Lower abdominal pain, unspecified K30 Functional dyspepsia Office Visit 12/21/2016 2:00p Main Office Kassidy F11.20 Opioid dependenceMelvin [...] 07/07/2016 9:45a Main Office Kassidy F11.20 Opioid dependenceMelvin M.D. uncomplicated M54.5 Low back pain G89.4 Chronic pain syndrome K08.9 Disorder of teeth and supporting structures, unspecified Z23 Encounter for immunization Z41.8 Encntr for oth proc for purpose oth [facility] Office Visit 06/08/2016 10:45a Main Office Kassidy F11.20 Opioid dependenceMelvin M.D. uncomplicated Office Visit 05/11/2016 2:00p Main Office Kassidy F11.20 Opioid dependenceMelvin M.D. uncomplicated M54.5 Low back pain G89.4 Chronic pain syndrome D64.9 Anemia, unspecified F17.210 Nicotine dependence, cigarettes, uncomplicated Plan of Treatment Future Appointment(s):02/18/2019 1:30 pm - Melvin Yi M.D. at [facility]/17/2018 - Melvin Yi M.D.F11.20 Opioid dependence, uncomplicatedComments:Doing well on buprenorphine. Continue same. Will spread out visits to ~q2mo.Follow up:RTO early February (prior to February 26)G89.4 Chronic pain wvumcfyhQ85.5 Low back pain
[2018-12-29 18:00] VITALS: BP 118/68
--- NOTE | 2018-12-29 18:08 | UC ---
Throat Pain/Nasal Geo HPI - HPI Summary HPI Summary: Patient states she had a migraine in the middle of the week last week which resolved and then she started experiencing some sinus pressure with nasal congestion on Saturday. She does have a history of seasonal allergies. - History of Current Complaint Chief Complaint: UCGeneralIllness Stated Complaint: SINUS COMPLAINT,RT EAR COMPLAINT Time Seen by Provider: 12/29/18 18:03 Hx Obtained From: Patient Hx Last Menstrual Period: 12/24/18 ?: No Onset/Duration: Gradual Onset Severity: Mild Pain Intensity: 3 Cough: None Associated Signs & Symptoms: Positive: Negative Related History: Seasonal Allergies - Epiglottits Risk Factors Epiglottis Risk Factors: Negative - Allergies/Home Medications Allergies/Adverse Reactions: Allergies Allergy/AdvReac Type Severity Reaction Status Date / Time Sulfa (Sulfonamide Allergy Unknown Verified 12/29/18 18:00 Antibiotics) Reaction Details PMH/Surg Hx/FS Hx/Imm Hx Previously Healthy: Yes - Surgical History Surgical History: Yes Surgery Procedure, Year, and Place: tonsillectomy - Family History Known Family History: Negative: Cardiac Disease, Hypertension, Diabetes - Social History Alcohol Use: None Substance Use Type: None Smoking Status (MU): Heavy Every Day Tobacco Smoker Type: eCigarettes Amount Used/How Often: 1/2 PPD Length of Time of Smoking/Using Tobacco: started age 20 Have You Smoked in the Last Year: Yes - Immunization History Most Recent Tetanus Shot: unknown Vaccination Up to Date: Yes Review of Systems All Other Systems Reviewed And Are Negative: Yes Constitutional: Positive: Negative Skin: Positive: Negative Eyes: Positive: Negative ENT: Positive: Nasal Discharge, Sinus Congestion, Sinus Pain/Tenderness Respiratory: Positive: Negative Cardiovascular: Positive: Negative Gastrointestinal: Positive: Negative Genitourinary: Positive: Negative Motor: Positive: Negative Neurovascular: Positive: Negative Musculoskeletal: Positive: Negative Neurological: Positive: Negative Psychological: Positive: Negative Is Patient Immunocompromised?: No Physical Exam Triage Information Reviewed: Yes Appearance: Well-Appearing, No Pain Distress, Well-Nourished Vital Signs: Initial Vital Signs Temp 97.8 F 12/29/18 17:55 Pulse 85 12/29/18 17:55 Resp 16 12/29/18 17:55 BP 118/68 12/29/18 17:55 Pulse Ox 100 12/29/18 17:55 Vital Signs Reviewed: Yes Eye Exam: Normal ENT: Positive: Nasal congestion - Turbinates are mildly swollen, Nasal drainage - Clear nasal coryza, Sinus tenderness - Mild maxillary sinus tenderness on palpation, Neck exam: Normal Respiratory Exam: Normal Cardiovascular Exam: Normal Abdominal Exam: Normal Bowel Sounds: Positive: Present Musculoskeletal Exam: Normal Neurological Exam: Normal Psychological Exam: Normal Skin Exam: Normal Throat Pain/Nasal Course/Dx - Course Course Of Treatment: She has been comfortable here. She is willing to try a course of Flonase and follow up with her primary care doctor as needed. - Differential Dx/Diagnosis Provider Diagnosis: Allergic rhinitis Discharge - Sign-Out/Discharge Documenting (check all that apply): Patient Departure All imaging exams completed and their final reports reviewed: No Studies - Discharge Plan Condition: Good Disposition: HOME Prescriptions: Fluticasone NASAL SPRAY 50MCG* [Flonase NASAL SPRAY 50MCG*] 2 spray BOTH NARES DAILY 7 Days #1 btl Patient Education Materials: Allergic Rhinitis (DC) Referrals: Melvin Yi MD [Primary Care Provider] - Additional Instructions: Increase fluids. 2 sprays in each nostril once a day for one week and then may decrease to 1 spray in each nostril once a day for another week. Definite follow up with her primary care provider if no improvement in 3 or 4 days. - Billing Disposition and Condition Condition: GOOD Disposition: Home - Attestation Statements Provider Attestation: Per institutional requirements, I have reviewed the chart, however, I was not consulted specifically or made aware of this patient by the midlevel provider. I did not personally evaluate, interact with , or disposition this patient.
== END 2018-12-29 18:17 | disposition home or self-care (01) ==
LOC: UCCORT 16:05
DX: J30.9 Allergic rhinitis, unspecified (principal); F17.290 Nicotine dependence, other tobacco product, uncomplicated; Z91.09 Other allergy status, other than to drugs and biological substances; Z88.2 Allergy status to sulfonamides
CPT/HCPCS: 99212; G0463

== ENCOUNTER 2020-02-18 09:27 | Emergency (ER) | payer OTHER ==
[2020-02-18 10:03] VITALS: BP 97/76
== END 2020-02-18 10:30 | disposition home or self-care (01) ==
LOC: UCCORT 09:27